=== PATIENT | female | born 1930 | race Caucasian/White ===

== ENCOUNTER 2017-03-13 16:07 | Observation (INO) | payer OTHER, MEDICAID ==
[2017-03-13 16:33] LABS: PLATELET COUNT 365 10^3/uL (150-400)
[2017-03-13 16:44] LABS: INR 0.91 (0.83-1.16); PROTIME(PATIENT) 12.2 SEC (12.0-15.0)
--- NOTE | 2017-03-13 16:54 | EDPHY ---
H & P Stated Complaint: Slurred Speech Time Seen by Provider: 03/13/17 16:44 HPI/ROS: CHIEF COMPLAINT: Resolved expressive aphasia HISTORY OF PRESENT ILLNESS: The patient patient is brought to the emergency department by paramedics after she experienced a bout of resolved expressive aphasia. The patient has remote history of a stroke 5 years ago. She underwent a left carotid endarterectomy. She has been symptom-free since that time. The patient is intermittently using a baby aspirin. According to the patient's son, she developed an expressive aphasia at 3:30 p.m. this afternoon. REVIEW OF SYSTEMS: A comprehensive 10 point review of systems is otherwise negative aside from elements mentioned in the history of present illness. - Medical/Surgical History Other PMH: Stroke 2011, DM, HTN, CHF, Gerd, carotid endarectomy - Physical Exam Exam: General Appearance: Alert, no distress Eyes: Pupils equal and round no pallor or injection ENT, Mouth: Mucous membranes moist Respiratory: There are no retractions, lungs are clear to auscultation Cardiovascular: Regular rate and rhythm Gastrointestinal: Abdomen is soft and nontender, no masses, bowel sounds normal Neurological: A&O, normal motor function, normal sensory exam, normal cranial nerves Skin: Warm and dry, no rashes Musculoskeletal: Neck is supple nontender Extremities: symmetrical, full range of motion Constitutional: Initial Vital Signs Heart Rate 76 03/13/17 16:11 Respiratory Rate 14 03/13/17 16:11 Blood Pressure 160/70 H 03/13/17 16:11 O2 Sat (%) 92 03/13/17 16:11 O2 Delivery Mode Room Air Allergies/Adverse Reactions: No Known Allergies Allergy (Unverified 03/13/17 16:45) Medical Decision Making - Diagnostics EKG Interpretation: EKG: Complete interpretation has been separately recorded in the [facility] archive. Summary impression: Sinus rhythm, single PVC, nonspecific ST T wave changes noted Imaging Results: Imaging Impressions Head CT 03/13/17 17:19 Impression: 1. Old large right parietal infarct with no definite acute intracranial findings. 2. Additional findings as above. Findings discussed with Dr. Matteo Toribio on 03/13/2017 at 17:58. Head CTA 03/13/17 17:20 Impression: 1. No acute vascular findings. If symptoms persist and clinical suspicion warrants, consider MRI. 2. Tortuosity in the proximal right internal carotid artery causing mild stenosis. 3. Mild narrowing and irregularity of the distal right P1 and proximal P2 segment of the posterior cerebral artery. 4. 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 5. Multilevel degenerative changes in the cervical spine. 6. Additional findings as above. Stenoses are calculated using [place] Symptomatic Carotid Endarterectomy Trial (NASCET) criteria. Findings discussed with Dr. Matteo Toribio on 03/13/2017 at 18:12. Neck CTA 03/13/17 17:20 Impression: 1. No acute vascular findings. If symptoms persist and clinical suspicion warrants, consider MRI. 2. Tortuosity in the proximal right internal carotid artery causing mild stenosis. 3. Mild narrowing and irregularity of the distal right P1 and proximal P2 segment of the posterior cerebral artery. 4. 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 5. Multilevel degenerative changes in the cervical spine. 6. Additional findings as above. Stenoses are calculated using [place] Symptomatic Carotid Endarterectomy Trial (NASCET) criteria. Findings discussed with Dr. Matteo Toribio on 03/13/2017 at 18:12. ED Course/Re-evaluation: The patient presents to the ED with symptoms consistent with an acute TIA including an expressive aphasia, difficulty walking and reported paresthesias according to the patient's son. The patient arrives to the emergency department with resolved neurologic symptoms. She has an NIH stroke scale of 0. She does not meet criteria for any thrombolytics therapy. The patient was taken for a CT scan of her head which demonstrates no evidence of intracranial hemorrhage. CT angiography of the neck demonstrates no evidence of dissection or significant flow-limiting obstruction. The patient's EKG and cardiac monitoring in the ED demonstrate no evidence of an arrhythmia. The patient underwent serial examinations by myself over a 3 hour period without recurrent neurologic symptoms. Given the patient's TIA symptoms I do feel that she should be admitted to the hospital for observation. The patient is comfortable with this plan. The patient will be admitted by Dr. Moseley. Consultation was made with the hospitalist service at 7:50 p.m.. The patient was given a 325 mg aspirin in the ED. Differential Diagnosis: Differential diagnosis considered includes stroke, TIA, arrhythmia, dissection, metabolic abnormality, urinary tract infection, intracranial hemorrhage - Data Points Laboratory Results: Laboratory Results 03/13/17 16:26 03/13/17 16:26 03/13/17 03/13/17 03/13/17 16:26 16:26 16:26 WBC 13.63 10^3/uL H 10^3/uL (3.80-9.50) RBC 5.02 10^6/uL 10^6/uL (4.18-5.33) Hgb 15.0 g/dL g/dL (12.6-16.3) Hct 42.7 % % (38.0-47.0) MCV 85.1 fL fL (81.5-99.8) MCH 29.9 pg pg (27.9-34.1) MCHC 35.1 g/dL g/dL (32.4-36.7) RDW 13.9 % % (11.5-15.2) Plt Count 365 10^3/uL 10^3/uL (150-400) MPV 9.2 fL fL (8.7-11.7) Neut % (Auto) 65.0 % % (39.3-74.2) Lymph % (Auto) 25.2 % % (15.0-45.0) [place] % (Auto) 7.3 % % (4.5-13.0) Eos % (Auto) 1.4 % % (0.6-7.6) Baso % (Auto) 0.7 % % (0.3-1.7) Nucleat RBC Rel Count 0.0 % % (0.0-0.2) Absolute Neuts (auto) 8.86 10^3/uL H 10^3/uL (1.70-6.50) Absolute Lymphs (auto) 3.43 10^3/uL H 10^3/uL (1.00-3.00) Absolute Monos (auto) 1.00 10^3/uL H 10^3/uL (0.30-0.80) Absolute Eos (auto) 0.19 10^3/uL 10^3/uL (0.03-0.40) Absolute Basos (auto) 0.09 10^3/uL 10^3/uL (0.02-0.10) Absolute Nucleated RBC 0.00 10^3/uL 10^3/uL (0-0.01) Immature Gran % 0.4 % % (0.0-1.1) Immature Gran # 0.06 10^3/uL 10^3/uL (0.00-0.10) PT 12.2 SEC SEC (12.0-15.0) INR 0.91 (0.83-1.16) Sodium 138 mEq/L mEq/L (134-144) Potassium 4.4 mEq/L mEq/L (3.5-5.2) Chloride 100 mEq/L mEq/L (97-110) Carbon Dioxide 22 mEq/l mEq/l (22-31) Anion Gap 16 mEq/L mEq/L (8-16) BUN 17 mg/dL mg/dL (7-23) Creatinine 1.0 mg/dL mg/dL (0.6-1.0) Estimated GFR 53 Glucose 132 mg/dL H mg/dL (70-100) Calcium 9.6 mg/dL mg/dL (8.5-10.4) Troponin I < 0.012 ng/mL ng/mL (0.000-0.034) Urine Color Urine Appearance Urine pH Ur Specific [place] Urine Protein Urine Ketones Urine Blood Urine Nitrate Urine Bilirubin Urine Urobilinogen Ur Leukocyte Esterase Urine RBC Urine WBC Ur Epithelial Cells Urine Mucus Urine Glucose 03/13/17 16:00 WBC RBC Hgb Hct MCV MCH MCHC RDW Plt Count MPV Neut % (Auto) Lymph % (Auto) [place] % (Auto) Eos % (Auto) Baso % (Auto) Nucleat RBC Rel Count Absolute Neuts (auto) Absolute Lymphs (auto) Absolute Monos (auto) Absolute Eos (auto) Absolute Basos (auto) Absolute Nucleated RBC Immature Gran % Immature Gran # PT INR Sodium Potassium Chloride Carbon Dioxide Anion Gap BUN Creatinine Estimated GFR Glucose Calcium Troponin I Urine Color COLORLESS Urine Appearance CLEAR Urine pH 5.0 (5.0-7.5) Ur Specific [place] 1.003 (1.002-1.030) Urine Protein NEGATIVE (NEGATIVE) Urine Ketones NEGATIVE (NEGATIVE) Urine Blood NEGATIVE (NEGATIVE) Urine Nitrate NEGATIVE (NEGATIVE) Urine Bilirubin NEGATIVE (NEGATIVE) Urine Urobilinogen NEGATIVE EU EU (0.2-1.0) Ur Leukocyte Esterase TRACE H (NEGATIVE) Urine RBC 1-3 /hpf /hpf (0-3) Urine WBC 1-3 /hpf /hpf (0-3) Ur Epithelial Cells TRACE /lpf /lpf (NONE-1+) Urine Mucus TRACE /lpf /lpf (NONE-1+) Urine Glucose NEGATIVE (NEGATIVE) Medications Given: Discontinued Medications Acetaminophen (Tylenol) 650 mg PO EDNOW ONE Stop: 03/13/17 17:10 Last Admin: 03/13/17 17:12 Dose: 650 mg Departure - Departure Disposition: [facility] Inpatient Acute Clinical Impression: Transient cerebral ischemia Condition: Good Referrals: Patient,NotPresent [Unknown] - As per Instructions
--- NOTE | 2017-03-13 17:05 | CPEKG ---
Heart Rate: 67 RR Interval: 896 P-R Interval: 140 QRSD Interval: 90 QT Interval: 416 QTC Interval: 439 P [place]: 66 QRS [place]: 7 T Wave [place]: 76 EKG Severity - BORDERLINE ECG - EKG Impression: SINUS RHYTHM EKG Impression: VENTRICULAR PREMATURE COMPLEX EKG Impression: BORDERLINE T ABNORMALITIES, ANT-LAT LEADS Electronically Signed By: Matteo Toribio 13-Mar-2017 17:22:21
[2017-03-13] MEDS ORDERED: ACETAMINOPHEN 325 MG TAB PO ONE (17:09)
[2017-03-13] MEDS ORDERED: IOPAMIDOL (ISOVUE 370) 100 ML BTL IV ONE (17:24)
[2017-03-13] MEDS ORDERED: ONDANSETRON 4 MG/2 ML VIAL IVP PRN (19:57)
[2017-03-13] MEDS ORDERED: ONDANSETRON DISINTEGRATING 4 MG TAB PO PRN (19:57)
[2017-03-13] MEDS ORDERED: ALPRAZolam 0.5 MG TAB PO PRN (21:57)
[2017-03-13] MEDS ORDERED: CALCIUM CARBONATE 500 MG CHEWABLE TAB PO PRN (21:57)
[2017-03-13] MEDS ORDERED: FUROSEMIDE 20 MG TAB PO PRN (21:57)
--- NOTE | 2017-03-13 22:09 | PDGENHP ---
History and Physical - Chief Complaint Acute aphasia - History of Present Illness PCP: Dr. Smyth HPI: 86 yo F p/w acute aphasia characterized as expressive and like a "heaviness " to her voice w/ associated ataxia and paresthesias of the chest. Onset of symptoms was 3:30 p.m. and duration approx 20-30 minutes. She reports that the sensation was similar to what she experienced 5 years ago when she was told she had a CVA. She otherwise denies any infectious symptoms, although she does report intermittent pains located in her abdomen, not temporally associated w/ PO intake. History Information - Allergies/Home Medication List Allergies/Adverse Reactions: No Known Allergies Allergy (Unverified 03/13/17 16:45) Home Medications: ALPRAZolam [Xanax 0.5 MG (*)] 0.5 mg PO BID PRN 03/13/17 [Last Taken Unknown] Acetaminophen [Tylenol ES 500 mg (*)] 500 mg PO Q4H PRN 03/13/17 [Last Taken 11/20 08:00 500MG] Aspirin EC [Aspirin EC 81 mg (*)] 81 mg PO DAILY 03/13/17 [Last Taken 03/13/17] Calcium Carbonate [Tums 500MG (*)] 1,000 - 2,000 mg PO TIDMEAL PRN 03/13/17 [ Last Taken Unknown] FLUoxetine [Prozac 10 MG (*)] 10 mg PO DAILY 03/13/17 [Last Taken 03/13/17] Furosemide [Lasix 20 MG (*)] 20 mg PO DAILY PRN 03/13/17 [Last Taken Unknown] Levothyroxine [Synthroid 112 mcg (*)] 112 mcg PO DAILY06 03/13/17 [Last Taken ] Omeprazole [Prilosec 20 mg] 20 mg PO DAILY PRN 03/13/17 [Last Taken Unknown] I have personally reviewed and updated: family history, medical history, social history, surgical history - Past Medical History CVA (5 years ago) Additional medical history: Hypothyroidism. Sinus Congestion - Surgical History Additional surgical history: CEA 5 years ago when she had CVA - Family History Additional family history: no recent sick family contacts, no CAD/Afib - Social History Smoking Status: Never smoked Alcohol Use: None Drug Use: None Additional social history: lives at [facility] Review of Systems Review of Systems: ROS: 10pt was reviewed & negative except for what was stated in HPI & below Neurological: Reports: paresthesia, other (ataxia, aphasia) Physical Exam Physical Exam: Temp Pulse Resp BP Pulse Ox 36.4 C 62 18 165/78 H 93 03/13/17 20:49 03/13/17 20:49 03/13/17 20:49 03/13/17 20:49 03/13/17 20:49 Constitutional: no apparent distress, appears nourished, not in pain Eyes: PERRL, anicteric sclera, EOMI Ears, Nose, Mouth, Throat: moist mucous membranes, hard of hearing Cardiovascular: regular rate and rhythym, no murmur, rub, or gallop, No irregularly irregular, No edema Respiratory: no respiratory distress, no rales or rhonchi, clear to auscultation Gastrointestinal: normoactive bowel sounds, soft, non-tender abdomen, no palpable masses Genitourinary: no bladder fullness, no bladder tenderness Neurologic: AAOx3, sensation intact bilaterally, CN II-XII Intact, No weakness, No facial droop Psychiatric: interacting appropriately, not anxious, not encephalopathic, thought process linear Lab Data & Imaging Review 03/13/17 16:26 03/13/17 16:26 WBC 13.63 10^3/uL (3.80-9.50) H 03/13/17 16:26 RBC 5.02 10^6/uL (4.18-5.33) 03/13/17 16:26 Hgb 15.0 g/dL (12.6-16.3) 03/13/17 16:26 Hct 42.7 % (38.0-47.0) 03/13/17 16:26 MCV 85.1 fL (81.5-99.8) 03/13/17 16:26 MCH 29.9 pg (27.9-34.1) 03/13/17 16:26 MCHC 35.1 g/dL (32.4-36.7) 03/13/17 16:26 RDW 13.9 % (11.5-15.2) 03/13/17 16:26 Plt Count 365 10^3/uL (150-400) 03/13/17 16:26 MPV 9.2 fL (8.7-11.7) 03/13/17 16:26 Neut % (Auto) 65.0 % (39.3-74.2) 03/13/17 16:26 Lymph % (Auto) 25.2 % (15.0-45.0) 03/13/17 16:26 [place] % (Auto) 7.3 % (4.5-13.0) 03/13/17 16:26 Eos % (Auto) 1.4 % (0.6-7.6) 03/13/17 16:26 Baso % (Auto) 0.7 % (0.3-1.7) 03/13/17 16:26 Nucleat RBC Rel Count 0.0 % (0.0-0.2) 03/13/17 16:26 Absolute Neuts (auto) 8.86 10^3/uL (1.70-6.50) H 03/13/17 16:26 Absolute Lymphs (auto) 3.43 10^3/uL (1.00-3.00) H 03/13/17 16:26 Absolute Monos (auto) 1.00 10^3/uL (0.30-0.80) H 03/13/17 16:26 Absolute Eos (auto) 0.19 10^3/uL (0.03-0.40) 03/13/17 16:26 Absolute Basos (auto) 0.09 10^3/uL (0.02-0.10) 03/13/17 16:26 Absolute Nucleated RBC 0.00 10^3/uL (0-0.01) 03/13/17 16:26 Immature Gran % 0.4 % (0.0-1.1) 03/13/17 16:26 Immature Gran # 0.06 10^3/uL (0.00-0.10) 03/13/17 16:26 PT 12.2 SEC (12.0-15.0) 03/13/17 16:26 INR 0.91 (0.83-1.16) 03/13/17 16:26 Sodium 138 mEq/L (134-144) 03/13/17 16:26 Potassium 4.4 mEq/L (3.5-5.2) 03/13/17 16:26 Chloride 100 mEq/L (97-110) 03/13/17 16:26 Carbon Dioxide 22 mEq/l (22-31) 03/13/17 16:26 Anion Gap 16 mEq/L (8-16) 03/13/17 16:26 BUN 17 mg/dL (7-23) 03/13/17 16:26 Creatinine 1.0 mg/dL (0.6-1.0) 03/13/17 16:26 Estimated GFR 53 03/13/17 16:26 Glucose 132 mg/dL (70-100) H 03/13/17 16:26 Calcium 9.6 mg/dL (8.5-10.4) 03/13/17 16:26 Troponin I < 0.012 ng/mL (0.000-0.034) 03/13/17 16:26 Urine Color COLORLESS 03/13/17 16:00 Urine Appearance CLEAR 03/13/17 16:00 Urine pH 5.0 (5.0-7.5) 03/13/17 16:00 Ur Specific [place] 1.003 (1.002-1.030) 03/13/17 16:00 Urine Protein NEGATIVE (NEGATIVE) 03/13/17 16:00 Urine Ketones NEGATIVE (NEGATIVE) 03/13/17 16:00 Urine Blood NEGATIVE (NEGATIVE) 03/13/17 16:00 Urine Nitrate NEGATIVE (NEGATIVE) 03/13/17 16:00 Urine Bilirubin NEGATIVE (NEGATIVE) 03/13/17 16:00 Urine Urobilinogen NEGATIVE EU (0.2-1.0) 03/13/17 16:00 Ur Leukocyte Esterase TRACE (NEGATIVE) H 03/13/17 16:00 Urine RBC 1-3 /hpf (0-3) 03/13/17 16:00 Urine WBC 1-3 /hpf (0-3) 03/13/17 16:00 Ur Epithelial Cells TRACE /lpf (NONE-1+) 03/13/17 16:00 Urine Mucus TRACE /lpf (NONE-1+) 03/13/17 16:00 Urine Glucose NEGATIVE (NEGATIVE) 03/13/17 16:00 Visualized and Interpreted EKG results: Yes EKG Interpretation: Positive for: other (mild ST dep V5-V6) Assessment & Plan Assessment: 86 yo F p/w suspected acute TIA in setting of prior CVA Plan: # Suspected TIA. Acute, new problem, further w/u indicated. Evidenced by ataxia/ aphasia/paresthesias, sx resolved - suspect she had an acute event, WBC elevated - d/w Dr. Braeden Toribio, we both agree that given her ABCD2 score of 4, conferring moderate risk of subsequent CVA (4%/6%/10%), she requires urgent eval - get Echo - CTA w/o flow limiting stenosis, tortuosity in R ICA w/ mild stenosis, mild R P1 and P2 stenosis - ordered outside records (patient reports recent MRI, clinic note) - patient would like to defer repeat MRI at this time, but, if after therapy evals she still has some residual symptoms, would strongly recommend - increase ASA to 325 - check LDL, A1c, consider statin - get neuro consult in AM - monitor on tele, monitor for cardiac symptoms Diet. Regular PPx. High risk, SCDs given possibility of neurovascular event Code. Full per patient, son MDPOA Dispo. ADD 03/14, pending further w/u indicated above.
[2017-03-13] MEDS: traZODone 50 MG TAB PO SCH (22:35)
[2017-03-13] MEDS: ACETAMINOPHEN 325 MG TAB PO PRN (22:44)
[2017-03-14] MEDS: LEVOTHYROXINE 112 MCG TAB PO SCH (04:32)
[2017-03-14] MEDS: ACETAMINOPHEN 325 MG TAB PO PRN ×3 (04:32→20:56)
[2017-03-14] MEDS: FLUoxetine 10 MG CAP PO SCH (08:25)
[2017-03-14 08:38] LABS: PLATELET COUNT 319 10^3/uL (150-400)
[2017-03-14] MEDS ORDERED: ASPIRIN 325 MG TAB PO SCH (09:00)
[2017-03-14] MEDS ORDERED: PANTOPRAZOLE SODIUM 40 MG TAB PO PRN (09:00)
--- NOTE | 2017-03-14 09:54 | NEUROPROG ---
Assessment: [id number] CC: Dr. Moseley consulted neurology for problems speaking. Results placed in the EMR for his review. HPI: The patient reported on 03/13/17 she had 20-30 min of problems speaking associated with ataxia and tingling of the chest. She felt these symptoms were similar to stroke symptoms she suffered in 2011. She was admitted to [facility] for stroke evaluation. CTA head/neck showed no acute intracranial findings and no carotid stenosis > 50%. I initially saw the patient on 03/14/17. She felt her neurologic issues (speech problems, ataxia) had all resolved. She felt she had a sinus infection but otherwise felt good. She declined a brain MRI. PMHx: R parietal stroke 2011 (CEA after stroke), anxiety, hypothyroidism Home Meds: xanax, ASA 81 mg qd, Ca, prozac, lasix, synthroid, omeprazole SHx: no tobacco FHx: no CAD/afib ROS: Pt denied acute fever, total vision loss, active severe chest pain, respiratory failure, total body severe rash, total bowel/bladder incontinence, psychosis, active seizures, or active bleeding O: VS reviewed General: Alert Eyes: Fundoscopic exam not able to visualize optic disks CV: Heart RRR, no murmur, no carotid bruit Lungs: Clear to auscultation bilaterally, no rhonci or rales Neuro: - Mental: . Oriented x person/place/date . concentration appears normal . speech fluency/comprehension normal . memory appears normal . fund of knowledge appear intact - Cranial Nerves: . II: PERRL, VFFTC . III/IV/: EOMI, no nystagmus, normal smooth pursuits, no Ptosis . V: facial sensation intact to LT . VII: face symmetric to eye closure and smile . VIII: hearing intact to conversation . IX/X: uvula raises symmetrically . XI: SCM 5/5 B/L strength . XII: tongue protrudes midline w/nl strength - Motor: . Tone: normal tone in all 4 extrem . Strength: no pronator drift, strength 5/5 throughout (B/L delt, bic, tri, hand electronic scale assembler and tester, hf/he, df/pf) - Reflexes: B/L BR 2/4 - Sensory: all 4 extrem intact to light touch - Coord: [id number] wnl, CAROL wnl, [id number] wnl - Gait: deferred - NIH SS 0 Labs: 03/13/17- CBC WBC 13.63H, UA trace LE, Chem Gluc 132 Rads: 03/13/17- Head CT: no acute changes, old large R parietal infarct (I personally visualized the images on 03/14/17) 03/13/17- CTA head/neck: no acute vascular findings, prox mild R ICA stenosis (< 50%), mild narrowing of R P1 and P2, multilevel degen disc disease Assessment: 1. TIA causing 20-30 minutes of recurrent stroke symptoms of aphasia, ataxia, chest tingling on 03/13/17: Pt with prior right parietal stroke 2011 during which she had similar symptoms. Current episode may have been a TIA, small stroke, or a recurrence of old stroke symptoms. Pt declined brain MRI and prefers to be treated as if it was a TIA. If echocardiogram and telemetry are unremarkable and PT/OT/Speech agree then pt can discharge home. Recommend changing aspirin to plavix. LDL/H1AC pending. 2. Prior Right Parietal stroke 2011 3. Anxiety Plan: - 24 hour telemetry and TTE - Brain MRI w/o con declined by patient - Change aspirin 81 mg qd to plavix 75 mg qd (TIA occurred on aspirin) - Labs: LDL, H1AC (LDL goal < 70 and H1AC goal < 7.0), recommend statin if LDL > 70 - Blood Pressure < 140/90 - OT/PT/ST consults - F/U in neurology clinic 1-4 weeks after discharge Pt can discharge if PT/OT/Speech agrees and telemetry and TTE are unremarkable Objective: Vital Signs Temp Pulse Resp BP Pulse Ox 36.0 C 71 18 148/66 H 93 03/14/17 07:52 03/14/17 07:52 03/14/17 07:52 03/14/17 07:52 03/14/17 07:52 Laboratory Results 03/14/17 08:30 03/14/17 08:30 03/13/17 03/14/17 03/15/17 05:59 05:59 05:59 Intake Total 350 Balance 350 PT 12.2 SEC (12.0-15.0) 03/13/17 16:26 INR 0.91 (0.83-1.16) 03/13/17 16:26 Allergies/Adverse Reactions: No Known Allergies Allergy (Unverified 03/13/17 16:45)
--- NOTE | 2017-03-14 11:46 | ASMTCMCOM ---
CM Note CM Note Notes: Patient admitted after suspected TIA. She is being followed by neurology. I spoke with patient and her son Jorden ([facility] [employer]). She lives at [facility] where she received minimal assistance. She walks with a cane. We discussed the idea of using a walker, which her son says has been a recommendation for many years now. Patient seems amenable to trying it (she uses a cane now). I also suggested the idea of home PT/OT to help her learn to use walker and promote home safety. Will await PT/OT/FILLING CARRIER evals for formal recommendations. CM Discharge plan: TBD pending PT/OT/FILLING CARRIER evaluations and recommendations Date Signed: 03/14/2017 11:45 AM Electronically Signed By:Angelica Kerr RN
--- NOTE | 2017-03-14 11:46 | ASMTCMCOM ---
CM Note CM Note Notes: Patient admitted after suspected TIA. She is being followed by neurology. I spoke with patient and her son Jorden ([facility] She lives at [facility] where she received minimal assistance. She walks with a cane. We discussed the idea of using a walker, which her son says has been a recommendation for many years now. Patient seems amenable to trying it (she uses a cane now). I also suggested the idea of home PT/OT to help her learn to use walker and promote home safety. Will await PT/OT/SUCTION OPERATOR evals for formal recommendations. CM Discharge plan: TBD pending PT/OT/SUCTION OPERATOR evaluations and recommendations Date Signed: 03/14/2017 11:45 AM Electronically Signed By:Angelica Kerr RN
--- NOTE | 2017-03-14 11:46 | ASMTCMCOM ---
CM Note CM Note Notes: Patient admitted after suspected TIA. She is being followed by neurology. I spoke with patient and her son [facility] She lives at [facility] where she received minimal assistance. She walks with a cane. We discussed the idea of using a walker, which her son says has been a recommendation for many years now. Patient seems amenable to trying it (she uses a cane now). I also suggested the idea of home PT/OT to help her learn to use walker and promote home safety. Will await PT/OT/TAX COLLECTOR evals for formal recommendations. CM Discharge plan: TBD pending PT/OT/TAX COLLECTOR evaluations and recommendations Date Signed: 03/14/2017 11:45 AM Electronically Signed By:Angelica Kerr RN
--- NOTE | 2017-03-14 14:56 | HOSPPROG ---
Hospitalist Progress Note Assessment/Plan: 86 yo F p/w suspected acute TIA in setting of prior CVA. First encounter, chart reviewed. - CTA w/o flow limiting stenosis, tortuosity in R ICA w/ mild stenosis, mild R P1 and P2 stenosis # TIA - 20-30 minutes of recurrent stroke symptoms of aphasia, ataxia, chest tingling resolved. - Pt with prior right parietal stroke 2011 during which she had similar symptoms - Current episode may have been a TIA, small stroke, or a recurrence of old stroke symptoms - declined brain MRI and prefers to be treated as if it was a TIA. - echocardiogram and telemetry are pending - monitor for 24 hours if - PT/OT/ rec SNF -will change aspirin to plavix - CTA w/o flow limiting stenosis, tortuosity in R ICA w/ mild stenosis, mild R P1 and P2 stenosis - LDL/H1AC both high, will treat, start lipitor glucophage # Prior Right Parietal stroke 2011 # Anxiety # Confusion #Dispo unclear, cont in house monitoring tele, echo speech possibly needs SNF rehab Plan: - 24 hour telemetry and TTE - Brain MRI w/o con declined by patient - Change aspirin 81 mg qd to plavix 75 mg qd (TIA occurred on aspirin) - Blood Pressure < 140/90 - OT/PT/ST consults - F/U in neurology clinic 1-4 weeks after discharge Diet. Regular PPx. High risk, SCDs given possibility of neurovascular event Code. Full per patient, son MDPOA Dispo. change to inpt Subjective: Up in chair. Still confused and forgetful. Objective: Vital Signs Temp Pulse Resp BP Pulse Ox 36.0 C 60 21 H 143/55 H 90 L 03/14/17 07:52 03/14/17 11:48 03/14/17 11:48 03/14/17 11:48 03/14/17 11:48 Laboratory Results 03/14/17 08:30 03/14/17 08:30 03/13/17 03/14/17 03/15/17 05:59 05:59 05:59 Intake Total 350 Balance 350 PT 12.2 SEC (12.0-15.0) 03/13/17 16:26 INR 0.91 (0.83-1.16) 03/13/17 16:26 - Physical Exam Constitutional: not in pain, chronically ill appearing, obese Eyes: PERRL, anicteric sclera, EOMI Ears, Nose, Mouth, Throat: moist mucous membranes, hearing normal, ears appear normal Cardiovascular: regular rate and rhythym, No JVD, No edema Respiratory: no respiratory distress, no rales or rhonchi, reduced air movement Gastrointestinal: normoactive bowel sounds, No tenderness, No ascites Skin: warm, normal color, No erythema Musculoskeletal: normal joint ROM, no joint effusions, generalized weakness Psychiatric: not anxious, poor insight, poor judgement, poor memory ICD10 Worksheet Patient Problems: Problems Problem Status Onset Transient cerebral ischemia Acute
--- NOTE | 2017-03-14 15:37 | ASMTCMCOM ---
CM Note CM Note Notes: Call from Moni, cardiac care unit nurse at [facility]. She will have to come do a "re-admit" assessment tomorrow since patient has been hospitalized for >24 hrs. I asked her to please coordinate this assessment with patient's son/TIMUR Leonardo who is available tomorrow after 1300. I left Moni a voice message to please call Jorden and coordinate. I spoke with Jorden and his about the above meeting and the potenial requirement by [facility] for a SNF stay. Jorden believes that patient is at her baseline, which seems reasonable since she did not suffer a fall and her TIA symptoms have resolved. I explained that we could arrange home care at [facility] as another option. I encouraged him to call [facility] and see if patient could be receiving more assistance from the facility. I gave him a Senior Blue Book and encouraged him to research facilities in case that becomes the recommendation. CM will follow tomorrow. Current d/c plan: TBD Date Signed: 03/14/2017 03:37 PM Electronically Signed By:Angelica Kerr RN
--- NOTE | 2017-03-14 15:37 | ASMTCMCOM ---
CM Note CM Note Notes: Call from Moni, career representative at [facility]. She will have to come do a "re-admit" assessment tomorrow since patient has been hospitalized for >24 hrs. I asked her to please coordinate this assessment with patient's son/TIMUR Leonardo who is available tomorrow after 1300. I left Moni a voice message to please call Jorden and coordinate. I spoke with Jorden and his about the above meeting and the potenial requirement by [facility] for a SNF stay. Jorden believes that patient is at her baseline, which seems reasonable since she did not suffer a fall and her TIA symptoms have resolved. I explained that we could arrange home care at [facility] as another option. I encouraged him to call [facility] and see if patient could be receiving more assistance from the facility. I gave him a Senior Blue Book and encouraged him to research facilities in case that becomes the recommendation. CM will follow tomorrow. Current d/c plan: TBD Date Signed: 03/14/2017 03:37 PM Electronically Signed By:Angelica Kerr RN
--- NOTE | 2017-03-14 15:37 | ASMTCMCOM ---
CM Note CM Note Notes: Call from Moni, customer care coordinator at [facility]. She will have to come do a "re-admit" assessment tomorrow since patient has been hospitalized for >24 hrs. I asked her to please coordinate this assessment with patient's son/TIMUR Leonardo who is available tomorrow after 1300. I left Moni a voice message to please call Jorden and coordinate. I spoke with Jorden and his about the above meeting and the potenial requirement by [facility] for a SNF stay. Jorden believes that patient is at her baseline, which seems reasonable since she did not suffer a fall and her TIA symptoms have resolved. I explained that we could arrange home care at [facility] as another option. I encouraged him to call [facility] and see if patient could be receiving more assistance from the facility. I gave him a Senior Blue Book and encouraged him to research facilities in case that becomes the recommendation. CM will follow tomorrow. Current d/c plan: TBD Date Signed: 03/14/2017 03:37 PM Electronically Signed By:Angelica Kerr RN
--- NOTE | 2017-03-14 17:56 | ECHO ---
[email or web address] [address] [address] Main: [phone] Fax: Transthoracic Echocardiogram Name: NICHOLAS ALVAREZ MR#: [id number] Study Date: 03/14/2017 Study Time: 07:58 AM Date of : 1930 Age: 86 year(s) Height: 167.6 cm (66 in.) Weight: 104.33 kg (230 lb.) BSA: 2.12 m2 Gender: Female Examination: Echo Indication: eval TIA Image Quality: Technically Difficult Contrast: Requested by: Aron Moseley BP: 148 mmHg/66 mmHg Heart Rate: 61 bpm Rhythm: Normal sinus rhythm with ectopy Indication: eval TIA Procedure Staff Bindery Operator: Angeles Kirkland Reading Physician: Aron Contreras Requesting Provider: Conclusions: Normal size left ventricle. Borderline concentric LV hypertrophy. EF is 57 %. Cannot rule out wall motion abnormality due to poor endocardial definition. There is mild thickening of the mitral valve leaflets. Mild-moderate mitral annular calcification. Trivial to mild mitral regurgitation. The aortic valve is tri-leaflet. There is no aortic valve regurgitation. No aortic valve stenosis is present. No old studies for comparison. Measurements: Chambers Valvular Assessment AV/MV Valvular Assessment TV/PV Normal Normal Normal Name Value Range Name Value Range Name Value Range Ao Joellen (MM): 2.5 cm (2.2 cm-3.7 AV Vmax: 1.25 m/s (1 m/s-1.7 TR Vmax: 2.40 mm/s ( - ) cm) m/s) TR PGmax: 23 mmHg ( - ) IVSd (2D): 1.1 cm (0.6 cm-1.1 AV maxP mmHg ( - ) syst. PAP: 28 mmHg ( - ) cm) LVOT Vmax: 0.87 m/s (0.7 m/s-1.1 PV Vmax: 0.80 m/s (0.6 m/s-0.9 LVDd (2D): 4.4 cm (3.9 cm-5.3 m/s) m/s) cm) MV E Vmax: 0.44 m/s ( - ) PV PGmax: 3 mmHg ( - ) LVDs (2D): 3.1 cm (2.1 cm-4 MV A Vmax: 0.84 m/s ( - ) cm) MV E/A: 0.52 ( - ) LVPWd (2D): 1.0 cm ( - ) LVEF (2D): 57 (>=54 %) RVDd(2D): 3.5 cm (1.9 cm-3.8 cmmm) Continued Measurements: Patient: NICHOLAS ALVAREZ Study Date: 03/14/2017 Page 1 of 2 07:58 AM Chambers Valvular Assessment AV/MV Valvular Assessment TV/PV Name Value Name Value Name Value LADs Lon.0 cm MV DecTime: 331 m/s CVP (est.): 5 mmHg LA Area: 18.9 cm2 MV E' Septal: 0.07 m/s LA Volume: 65 ml MV E/E' Septal: 6.50 LA Volume Index: 30.7 ml/m2 MV E/E' Lateral: 7.90 RA Area: 12.9 cm2 Additional Vessels Name Value Ao Ascendin.0 cm Findings: Left Ventricle: Normal size left ventricle. Borderline concentric LV hypertrophy. Normal global systolic LV function. EF is 57 %. Cannot rule out wall motion abnormality due to poor endocardial definition. Grade 1 diastolic dysfunction (abnormal relaxation). Right Ventricle: Normal size right ventricle. Normal RV function. Left Atrium: The left atrium is normal in size. Right Atrium: The right atrium is normal in size. Mitral Valve: There is mild thickening of the mitral valve leaflets. Mild-moderate mitral annular calcification. Trivial to mild mitral regurgitation. Aortic Valve: The aortic valve is tri-leaflet. Aortic sclerosis is present. There is no aortic valve regurgitation. No aortic valve stenosis is present. Tricuspid Valve: The tricuspid valve appears normal. Trivial to mild tricuspid valve regurgitation. The pulmonary artery pressure is normal. Aorta: Normal size aortic root measuring 2.5 cm. Normal size ascending aorta measuring 3.0 cm. IVC: The IVC is normal sized. Pericardium: No pericardial effusion. There is pericardial fat. (No Signature Object) Patient: NICHOLAS ALVAREZ Study Date: 03/14/2017 Page 2 of 2 07:58 AM [id number]
--- NOTE | 2017-03-14 17:56 | ECHO ---
[email or web address] [address] [address] Main: [phone] Fax: Transthoracic Echocardiogram Name: NICHOLAS ALVAREZ MR#: [id number] Study Date: 03/14/2017 Study Time: 07:58 AM Date of : 1930 Age: 86 year(s) Height: 167.6 cm (66 in.) Weight: 104.33 kg (230 lb.) BSA: 2.12 m2 Gender: Female Examination: Echo Indication: eval TIA Image Quality: Technically Difficult Contrast: Requested by: Aron Moseley BP: 148 mmHg/66 mmHg Heart Rate: 61 bpm Rhythm: Normal sinus rhythm with ectopy Indication: eval TIA Procedure Staff Lithographic Platemaker: Angeles Kirkland Reading Physician: Aron Contreras Requesting Provider: Conclusions: Normal size left ventricle. Borderline concentric LV hypertrophy. EF is 57 %. Cannot rule out wall motion abnormality due to poor endocardial definition. There is mild thickening of the mitral valve leaflets. Mild-moderate mitral annular calcification. Trivial to mild mitral regurgitation. The aortic valve is tri-leaflet. There is no aortic valve regurgitation. No aortic valve stenosis is present. No old studies for comparison. Measurements: Chambers Valvular Assessment AV/MV Valvular Assessment TV/PV Normal Normal Normal Name Value Range Name Value Range Name Value Range Ao Joellen (MM): 2.5 cm (2.2 cm-3.7 AV Vmax: 1.25 m/s (1 m/s-1.7 TR Vmax: 2.40 mm/s ( - ) cm) m/s) TR PGmax: 23 mmHg ( - ) IVSd (2D): 1.1 cm (0.6 cm-1.1 AV maxP mmHg ( - ) syst. PAP: 28 mmHg ( - ) cm) LVOT Vmax: 0.87 m/s (0.7 m/s-1.1 PV Vmax: 0.80 m/s (0.6 m/s-0.9 LVDd (2D): 4.4 cm (3.9 cm-5.3 m/s) m/s) cm) MV E Vmax: 0.44 m/s ( - ) PV PGmax: 3 mmHg ( - ) LVDs (2D): 3.1 cm (2.1 cm-4 MV A Vmax: 0.84 m/s ( - ) cm) MV E/A: 0.52 ( - ) LVPWd (2D): 1.0 cm ( - ) LVEF (2D): 57 (>=54 %) RVDd(2D): 3.5 cm (1.9 cm-3.8 cmmm) Continued Measurements: Patient: NICHOLAS ALVAREZ Study Date: 03/14/2017 Page 1 of 2 07:58 AM Chambers Valvular Assessment AV/MV Valvular Assessment TV/PV Name Value Name Value Name Value LADs Lon.0 cm MV DecTime: 331 m/s CVP (est.): 5 mmHg LA Area: 18.9 cm2 MV E' Septal: 0.07 m/s LA Volume: 65 ml MV E/E' Septal: 6.50 LA Volume Index: 30.7 ml/m2 MV E/E' Lateral: 7.90 RA Area: 12.9 cm2 Additional Vessels Name Value Ao Ascendin.0 cm Findings: Left Ventricle: Normal size left ventricle. Borderline concentric LV hypertrophy. Normal global systolic LV function. EF is 57 %. Cannot rule out wall motion abnormality due to poor endocardial definition. Grade 1 diastolic dysfunction (abnormal relaxation). Right Ventricle: Normal size right ventricle. Normal RV function. Left Atrium: The left atrium is normal in size. Right Atrium: The right atrium is normal in size. Mitral Valve: There is mild thickening of the mitral valve leaflets. Mild-moderate mitral annular calcification. Trivial to mild mitral regurgitation. Aortic Valve: The aortic valve is tri-leaflet. Aortic sclerosis is present. There is no aortic valve regurgitation. No aortic valve stenosis is present. Tricuspid Valve: The tricuspid valve appears normal. Trivial to mild tricuspid valve regurgitation. The pulmonary artery pressure is normal. Aorta: Normal size aortic root measuring 2.5 cm. Normal size ascending aorta measuring 3.0 cm. IVC: The IVC is normal sized. Pericardium: No pericardial effusion. There is pericardial fat. (No Signature Object) Patient: NICHOLAS ALVAREZ Study Date: 03/14/2017 Page 2 of 2 07:58 AM [id number]
--- NOTE | 2017-03-14 17:56 | ECHO ---
[email or web address] [address] [address] Main: [phone] Fax: Transthoracic Echocardiogram Name: NICHOLAS ALVAREZ MR#: [id number] Study Date: 03/14/2017 Study Time: 07:58 AM Date of : 1930 Age: 86 year(s) Height: 167.6 cm (66 in.) Weight: 104.33 kg (230 lb.) BSA: 2.12 m2 Gender: Female Examination: Echo Indication: eval TIA Image Quality: Technically Difficult Contrast: Requested by: Aron Moseley BP: 148 mmHg/66 mmHg Heart Rate: 61 bpm Rhythm: Normal sinus rhythm with ectopy Indication: eval TIA Procedure Staff Cornetist: Angeles Kirkland Reading Physician: Aron Contreras Requesting Provider: Conclusions: Normal size left ventricle. Borderline concentric LV hypertrophy. EF is 57 %. Cannot rule out wall motion abnormality due to poor endocardial definition. There is mild thickening of the mitral valve leaflets. Mild-moderate mitral annular calcification. Trivial to mild mitral regurgitation. The aortic valve is tri-leaflet. There is no aortic valve regurgitation. No aortic valve stenosis is present. No old studies for comparison. Measurements: Chambers Valvular Assessment AV/MV Valvular Assessment TV/PV Normal Normal Normal Name Value Range Name Value Range Name Value Range Ao Joellen (MM): 2.5 cm (2.2 cm-3.7 AV Vmax: 1.25 m/s (1 m/s-1.7 TR Vmax: 2.40 mm/s ( - ) cm) m/s) TR PGmax: 23 mmHg ( - ) IVSd (2D): 1.1 cm (0.6 cm-1.1 AV maxP mmHg ( - ) syst. PAP: 28 mmHg ( - ) cm) LVOT Vmax: 0.87 m/s (0.7 m/s-1.1 PV Vmax: 0.80 m/s (0.6 m/s-0.9 LVDd (2D): 4.4 cm (3.9 cm-5.3 m/s) m/s) cm) MV E Vmax: 0.44 m/s ( - ) PV PGmax: 3 mmHg ( - ) LVDs (2D): 3.1 cm (2.1 cm-4 MV A Vmax: 0.84 m/s ( - ) cm) MV E/A: 0.52 ( - ) LVPWd (2D): 1.0 cm ( - ) LVEF (2D): 57 (>=54 %) RVDd(2D): 3.5 cm (1.9 cm-3.8 cmmm) Continued Measurements: Patient: NICHOLAS ALVAREZ Study Date: 03/14/2017 Page 1 of 2 07:58 AM Chambers Valvular Assessment AV/MV Valvular Assessment TV/PV Name Value Name Value Name Value LADs Lon.0 cm MV DecTime: 331 m/s CVP (est.): 5 mmHg LA Area: 18.9 cm2 MV E' Septal: 0.07 m/s LA Volume: 65 ml MV E/E' Septal: 6.50 LA Volume Index: 30.7 ml/m2 MV E/E' Lateral: 7.90 RA Area: 12.9 cm2 Additional Vessels Name Value Ao Ascendin.0 cm Findings: Left Ventricle: Normal size left ventricle. Borderline concentric LV hypertrophy. Normal global systolic LV function. EF is 57 %. Cannot rule out wall motion abnormality due to poor endocardial definition. Grade 1 diastolic dysfunction (abnormal relaxation). Right Ventricle: Normal size right ventricle. Normal RV function. Left Atrium: The left atrium is normal in size. Right Atrium: The right atrium is normal in size. Mitral Valve: There is mild thickening of the mitral valve leaflets. Mild-moderate mitral annular calcification. Trivial to mild mitral regurgitation. Aortic Valve: The aortic valve is tri-leaflet. Aortic sclerosis is present. There is no aortic valve regurgitation. No aortic valve stenosis is present. Tricuspid Valve: The tricuspid valve appears normal. Trivial to mild tricuspid valve regurgitation. The pulmonary artery pressure is normal. Aorta: Normal size aortic root measuring 2.5 cm. Normal size ascending aorta measuring 3.0 cm. IVC: The IVC is normal sized. Pericardium: No pericardial effusion. There is pericardial fat. (No Signature Object) Patient: NICHOLAS ALVAREZ Study Date: 03/14/2017 Page 2 of 2 07:58 AM [id number]
[2017-03-14] MEDS: traZODone 50 MG TAB PO SCH (20:57)
[2017-03-15] MEDS: ACETAMINOPHEN 325 MG TAB PO PRN ×2 (06:02→12:12)
[2017-03-15] MEDS: LEVOTHYROXINE 112 MCG TAB PO SCH (06:02)
[2017-03-15] MEDS: FLUoxetine 10 MG CAP PO SCH (08:55)
[2017-03-15] MEDS ORDERED: CLOPIDOGREL BISULFATE 75 MG TAB PO SCH (09:00)
[2017-03-15] MEDS ORDERED: ATORVASTATIN CALCIUM 20 MG TAB PO SCH (09:00)
[2017-03-15 11:47] VITALS: BP 151/72; PULSE 73; RESP 16; TEMP 97.8; O2SAT 94
--- NOTE | 2017-03-15 13:18 | PDIAF ---
- Diagnosis Diagnosis: tia Code Status: Full Code - Medication Management Discharge Medications: Medications to Continue on Transfer ALPRAZolam [Xanax 0.5 MG (*)] 0.5 mg PO BID PRN 03/13/17 [Last Taken Unknown] Acetaminophen [Tylenol ES 500 mg (*)] 500 mg PO Q4H PRN 03/13/17 [Last Taken 11/20 08:00 500MG] Calcium Carbonate [Tums 500MG (*)] 1,000 - 2,000 mg PO TIDMEAL PRN 03/13/17 [ Last Taken Unknown] FLUoxetine [Prozac 10 MG (*)] 10 mg PO DAILY 03/13/17 [Last Taken 03/13/17] Furosemide [Lasix 20 MG (*)] 20 mg PO DAILY PRN 03/13/17 [Last Taken Unknown] Levothyroxine [Synthroid 112 mcg (*)] 112 mcg PO DAILY06 03/13/17 [Last Taken ] Omeprazole [Prilosec 20 mg] 20 mg PO DAILY PRN 03/13/17 [Last Taken Unknown] Atorvastatin Calcium [Lipitor 20 mg (*)] 20 mg PO DAILY #30 tab 03/15/17 [Last Taken Unknown] Clopidogrel Bisulfate [Plavix (*)] 75 mg PO DAILY #30 tab 03/15/17 [Last Taken Unknown] Discharge Medications: Refer to the Discharge Home Medication list for PRN reason. PICC Care - Routine: N/A - Orders Services needed: Physical Therapy, Occupational Therapy Diet Recommendation: no restrictions on diet - Follow Up Care Current Providers and Referrals: Patient,NotPresent [Unknown] - As per Instructions Wil Nascimento DO [Medical Doctor] -
--- NOTE | 2017-03-15 14:03 | ASMTCMCOM ---
CM Note CM Note Notes: Mena from [facility] here to do a re-admit assessment on patient. I gave her d/c paperwork and a medication list. Referral made to [facility] for home PT/OT. They will contact patient upon d/c. Patient's son will transport her back to [facility] this afternoon. Date Signed: 03/15/2017 02:03 PM Electronically Signed By:Angelica Kerr RN
--- NOTE | 2017-03-15 14:03 | ASMTCMCOM ---
CM Note CM Note Notes: Mena from [facility] here to do a re-admit assessment on patient. I gave her d/c paperwork and a medication list. Referral made to [facility] for [facility]. They will contact patient upon d/c. Patient's son will transport her back to [facility] this afternoon. Date Signed: 03/15/2017 02:03 PM Electronically Signed By:Angelica Kerr RN
--- NOTE | 2017-03-15 14:03 | ASMTCMCOM ---
CM Note CM Note Notes: Mena from [facility] here to do a re-admit assessment on patient. I gave her d/c paperwork and a medication list. Referral made to [facility] for home PT/OT. They will contact patient upon d/c. Patient's son will transport her back to [facility] this afternoon. Date Signed: 03/15/2017 02:03 PM Electronically Signed By:Angelica Kerr RN
--- NOTE | 2017-03-15 14:20 | ASDISCHSUM ---
Discharge Information Plan Status:Home with Home Health Medically Cleared to Leave: Discharge Date:03/15/2017 02:15 PM CM D/C Disposition:Home Health Service ADT D/C Disposition:Home Health Service Projected Discharge Date:03/15/2017 02:15 PM Transportation at D/C:Family Discharge Delay Reason: Follow-Up Date:03/15/2017 02:15 PM Discharge Slot: Final Diagnosis: Placement Information Patient Contact Information Contact Name:LATIA Relationship:Jessee Address:[address] Work Phone: [facility]:KIMO Amos Phone: State/Zip Code:[place] [address] Email: Financial Information Financial Class: Primary Plan Desc:MEDICARE OUTPATIENT Primary Plan Number:[id number] Secondary Plan Desc:MEDICAID HEALTH FIRST [place] Secondary Plan Number:[id number] Assessment Information [facility] CM Progress Note CM Note CM Note Notes: Patient admitted after suspected TIA. She is being followed by neurology. I spoke with patient and her son Jorden (TIMUR). She lives at [facility] where she received minimal assistance. She walks with a cane. We discussed the idea of using a walker, which her son says has been a recommendation for many years now. Patient seems amenable to trying it (she uses a cane now). I also suggested the idea of home PT/OT to help her learn to use walker and promote home safety. Will await PT/OT/CO OP evals for formal recommendations. CM Discharge plan: TBD pending PT/OT/CO OP evaluations and recommendations Date Signed: 03/14/2017 11:45 AM Electronically Signed By:Angelica Kerr RN [facility] CM Progress Note CM Note CM Note Notes: Call from Moni, healthcare recruiter at [facility]. She will have to come do a "re-admit" assessment tomorrow since patient has been hospitalized for >24 hrs. I asked her to please coordinate this assessment with patient's son/TIMUR Leonardo who is available tomorrow after 1300. I left Moni a voice message to please call Jorden and coordinate. I spoke with Jorden and his about the above meeting and the potenial requirement by [facility] for a SNF stay. Jorden believes that patient is at her baseline, which seems reasonable since she did not suffer a fall and her TIA symptoms have resolved. I explained that we could arrange home care at [facility] as another option. I encouraged him to call [facility] and see if patient could be receiving more assistance from the facility. I gave him a Senior Blue Book and encouraged him to research facilities in case that becomes the recommendation. CM will follow tomorrow. Current d/c plan: TBD Date Signed: 03/14/2017 03:37 PM Electronically Signed By:Angelica Kerr RN [facility] CM Progress Note CM Note CM Note Notes: Mena from [facility] here to do a re-admit assessment on patient. I gave her d/c paperwork and a medication list. Referral made to [facility] for home PT/OT. They will contact patient upon d/c. Patient's son will transport her back to [facility] this afternoon. Date Signed: 03/15/2017 02:03 PM Electronically Signed By:Angelica Kerr RN Intervention Information Intervention Type:*GONZALEZ-Signed Date of Service:03/14/2017 11:59 AM Patient Type:Observation Staff Member:Flores Temple Hours: Discipline: Severity: Comment:
--- NOTE | 2017-03-15 14:20 | ASDISCHSUM ---
Discharge Information Plan Status:Home with Home Health Medically Cleared to Leave: Discharge Date:03/15/2017 02:15 PM CM D/C Disposition:Home Health Service ADT D/C Disposition:Home Health Service Projected Discharge Date:03/15/2017 02:15 PM Transportation at D/C:Family Discharge Delay Reason: Follow-Up Date:03/15/2017 02:15 PM Discharge Slot: Final Diagnosis: Placement Information Patient Contact Information Contact Name:LATIA Relationship:Jessee Address:[address] Work Phone: [facility]:KIMO Amos Phone: State/Zip Code:[place] [address] Email: Financial Information Financial Class: Primary Plan Desc:MEDICARE OUTPATIENT Primary Plan Number:[id number] Secondary Plan Desc:MEDICAID HEALTH FIRST [place] Secondary Plan Number:[id number] Assessment Information [facility] CM Progress Note CM Note CM Note Notes: Patient admitted after suspected TIA. She is being followed by neurology. I spoke with patient and her son Jorden (TIMUR). She lives at [facility] where she received minimal assistance. She walks with a cane. We discussed the idea of using a walker, which her son says has been a recommendation for many years now. Patient seems amenable to trying it (she uses a cane now). I also suggested the idea of home PT/OT to help her learn to use walker and promote home safety. Will await PT/OT/ELECTRON BEAM PHOTO MASK MAKER evals for formal recommendations. CM Discharge plan: TBD pending PT/OT/ELECTRON BEAM PHOTO MASK MAKER evaluations and recommendations Date Signed: 03/14/2017 11:45 AM Electronically Signed By:Angelica Kerr RN [facility] CM Progress Note CM Note CM Note Notes: Call from Moni, wild animal caretaker at [facility]. She will have to come do a "re-admit" assessment tomorrow since patient has been hospitalized for >24 hrs. I asked her to please coordinate this assessment with patient's son/TIMUR Leonardo who is available tomorrow after 1300. I left Moni a voice message to please call Jorden and coordinate. I spoke with Jorden and his about the above meeting and the potenial requirement by [facility] for a SNF stay. Jorden believes that patient is at her baseline, which seems reasonable since she did not suffer a fall and her TIA symptoms have resolved. I explained that we could arrange home care at [facility] as another option. I encouraged him to call [facility] and see if patient could be receiving more assistance from the facility. I gave him a Senior Blue Book and encouraged him to research facilities in case that becomes the recommendation. CM will follow tomorrow. Current d/c plan: TBD Date Signed: 03/14/2017 03:37 PM Electronically Signed By:Angelica Kerr RN [facility] CM Progress Note CM Note CM Note Notes: Mena from [facility] here to do a re-admit assessment on patient. I gave her d/c paperwork and a medication list. Referral made to [facility] for home PT/OT. They will contact patient upon d/c. Patient's son will transport her back to [facility] this afternoon. Date Signed: 03/15/2017 02:03 PM Electronically Signed By:Angelica Kerr RN Intervention Information Intervention Type:*GONZALEZ-Signed Date of Service:03/14/2017 11:59 AM Patient Type:Observation Staff Member:Flores Temple Hours: Discipline: Severity: Comment:
--- NOTE | 2017-03-15 14:20 | ASDISCHSUM ---
Discharge Information Plan Status:Home with Home Health Medically Cleared to Leave: Discharge Date:03/15/2017 02:15 PM CM D/C Disposition:Home Health Service ADT D/C Disposition:Home Health Service Projected Discharge Date:03/15/2017 02:15 PM Transportation at D/C:Family Discharge Delay Reason: Follow-Up Date:03/15/2017 02:15 PM Discharge Slot: Final Diagnosis: Placement Information Patient Contact Information Contact Name:LATIA Relationship:Jessee Address:[address] Work Phone: [facility] Phone: State/Zip Code:[place] [address] Email: Financial Information Financial Class: Primary Plan Desc:MEDICARE OUTPATIENT Primary Plan Number:[id number] Secondary Plan Desc:MED[place] Secondary Plan Number:[id number] Assessment Information [facility] CM Progress Note CM Note CM Note Notes: Patient admitted after suspected TIA. She is being followed by neurology. I spoke with patient and her son Jorden (TIMUR). She lives at [facility] where she received minimal assistance. She walks with a cane. We discussed the idea of using a walker, which her son says has been a recommendation for many years now. Patient seems amenable to trying it (she uses a cane now). I also suggested the idea of home PT/OT to help her learn to use walker and promote home safety. Will await PT/OT/SLOPE HOIST OPERATOR evals for formal recommendations. CM Discharge plan: TBD pending PT/OT/SLOPE HOIST OPERATOR evaluations and recommendations Date Signed: 03/14/2017 11:45 AM Electronically Signed By:Angelica Kerr RN [facility] CM Progress Note CM Note CM Note Notes: Call from Moni, long term care pharmacist at [facility]. She will have to come do a "re-admit" assessment tomorrow since patient has been hospitalized for >24 hrs. I asked her to please coordinate this assessment with patient's son/TIMUR Leonardo who is available tomorrow after 1300. I left Moni a voice message to please call Jorden and coordinate. I spoke with Jorden and his about the above meeting and the potenial requirement by [facility] for a SNF stay. Jorden believes that patient is at her baseline, which seems reasonable since she did not suffer a fall and her TIA symptoms have resolved. I explained that we could arrange home care at [facility] as another option. I encouraged him to call [facility] and see if patient could be receiving more assistance from the facility. I gave him a Senior Blue Book and encouraged him to research facilities in case that becomes the recommendation. CM will follow tomorrow. Current d/c plan: TBD Date Signed: 03/14/2017 03:37 PM Electronically Signed By:Angelica Kerr RN [facility] CM Progress Note CM Note CM Note Notes: Mena from [facility] here to do a re-admit assessment on patient. I gave her d/c paperwork and a medication list. Referral made to [facility] for home PT/OT. They will contact patient upon d/c. Patient's son will transport her back to [facility] this afternoon. Date Signed: 03/15/2017 02:03 PM Electronically Signed By:Angelica Kerr RN Intervention Information Intervention Type:*GONZALEZ-Signed Date of Service:03/14/2017 11:59 AM Patient Type:Observation Staff Member:Flores Temple Hours: Discipline: Severity: Comment:
--- NOTE | 2017-03-15 15:50 | GDS ---
[f rep st] DISCHARGE SUMMARY DISCHARGE DIAGNOSES: 1. Transient ischemic attack. 2. Prior right stroke. 3. Anxiety. 4. Confusion. 5. Hyperlipidemia. 6. Elevated hemoglobin A1c. CONSULTATIONS: Dr. Nascimento. STUDIES: 1. CT angio of the head and neck. 2. CT of the head. 3. Echocardiogram. PHYSICAL EXAM: GENERAL: The patient is alert. VITAL SIGNS: Afebrile 36.6, pulse 73, respiratory r ate 16, blood pressure is 151/72. She is saturating 94% on room air. I have seen and evaluated the patient on the day of discharge. HOSPITAL COURSE: The patient is an 86-year-old female, who presented to the emergency room with comp laints of confusion. She was evaluated and diagnosed with: 1. Likely transient ischemic attack. During this hospitalization, her symptoms have completely reso lved. She did receive a consultation from Neurology. MRI of the brain was recommended, however, the patient declined. CT angio of the head and neck without flow-limiting stenosis. Echocardiogram is essentially stable. She has been monitored on telemetry for 24 hours with no arrhythmia identified. PT and OT have evaluated the patient and recommended home health care. She has also been evaluated by Speech Therapy. They recommend home health care. She has been transitioned from aspirin to Plavi x, given the fact that this incident occurred while on aspirin. She will follow up with Dr. Nascimento in the outpatient setting. 2. Hyperlipidemia. The patient was initiated on Lipitor during this hospital course and a prescript ion has been provided at the time of disposition. 3. Anxiety. This is stable. 4. Confusion. This has resolved. 5. Elevated hemoglobin A1c. The patient will follow with her primary care physician. Wants to decl ine initiation of treatment or medications at this time during this hospitalization. DISPOSITION: The patient will be discharged to return home to [facility] with home health care. Th ere are no pending studies. FOLLOWUP: With Dr. Nascimento in 1-4 weeks, as well as the patient's primary care physician. DISCHARGE MEDICATIONS: Please refer to EMR form. I have provided the patient a prescription for Celsa vix as well as Lipitor at the time of disposition. All other medications have remained the same, to the best of my knowledge. She will receive Home Health care, physical therapy, as well as occupational therapy at [facility]. I reviewed the patient's disposition with Dr. Nascimento as well as Case Management. I spent greater than 35 minutes in the care, coordination, and management of the patient's discharge. /[id number]/MODL
== END 2017-03-15 14:15 | disposition home health service (06) ==
LOC: EDBD 16:07 → F3N 20:41
PROVIDERS: ADMIT Internal Medicine; ATTEND Internal Medicine
DX: I63.9 Cerebral infarction, unspecified (principal); G45.9 Transient cerebral ischemic attack, unspecified; R29.700 NIHSS score 0; Z86.73 Personal history of transient ischemic attack (TIA), and cerebral infarction without residual deficits; F41.9 Anxiety disorder, unspecified; R41.0 Disorientation, unspecified; E78.5 Hyperlipidemia, unspecified; I10 Essential (primary) hypertension; E11.9 Type 2 diabetes mellitus without complications
CPT/HCPCS: 70450; 70496; 70498; 92507; 92523; 93005; 93306; 97110; 97116; 97162; 97166; 97535; 99285; G0378; G8978; G8979; G8987; G8988; G8989; G8999; G9158; G9168; G9169; G9170; G9186; Q9967

== ENCOUNTER 2017-03-21 08:35 | Emergency (ER) | payer OTHER, MEDICAID ==
--- NOTE | 2017-03-21 08:43 | EDPHY ---
H & P Time Seen by Provider: 03/21/17 08:42 - Medical/Surgical History Hx Asthma: No Hx Chronic Respiratory Disease: No Hx Diabetes: Yes Hx Cardiac Disease: Yes Hx Renal Disease: No Hx Cirrhosis: No Hx Alcoholism: No Hx HIV/AIDS: No Hx Splenectomy or Spleen Trauma: No Other PMH: Stroke 2012, DM, HTN, CHF, Gerd, carotid endarectomy - Social History Smoking Status: Never smoked Constitutional: Initial Vital Signs Temperature (C) 36.4 C 03/21/17 09:00 Heart Rate 62 03/21/17 09:00 Respiratory Rate 16 03/21/17 09:00 Blood Pressure 174/76 H 03/21/17 09:00 O2 Sat (%) 93 03/21/17 09:00 O2 Delivery Mode Room Air Allergies/Adverse Reactions: No Known Allergies Allergy (Unverified 03/13/17 16:45) Home Medications: Medication Instructions Recorded ALPRAZolam [Xanax 0.5 MG (*)] 0.5 mg PO BID PRN 03/13/17 Acetaminophen [Tylenol ES 500 mg 500 mg PO Q4H PRN 03/13/17 (*)] Calcium Carbonate [Tums 500MG (*)] 1,000 - 2,000 mg PO TIDMEAL PRN 03/13/17 FLUoxetine [Prozac 10 MG (*)] 10 mg PO DAILY 03/13/17 Furosemide [Lasix 20 MG (*)] 20 mg PO DAILY PRN 03/13/17 Levothyroxine [Synthroid 112 mcg 112 mcg PO DAILY06 03/13/17 (*)] Omeprazole [Prilosec 20 mg] 20 mg PO DAILY PRN 03/13/17 Atorvastatin Calcium [Lipitor 20 20 mg PO DAILY #30 tab 03/15/17 mg (*)] Clopidogrel Bisulfate [Plavix (*)] 75 mg PO DAILY #30 tab 03/15/17 Ciprofloxacin [Cipro] 500 mg PO BID #20 tab 03/21/17 metroNIDAZOLE [Flagyl 500 mg (*)] 500 mg PO TID #30 tab 03/21/17 Medical Decision Making - Diagnostics Imaging Results: Imaging Impressions Abdomen CT 03/21/17 08:51 Impression: 1. Mild sigmoid diverticulitis without abscess, bowel obstruction, or pneumoperitoneum. 2. Atherosclerotic abdominal aorta without aneurysm. 3. Small periumbilical abdominal wall hernia. 4. 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 Findings and recommendations discussed with Emergency Department physician, Jamie Joyner M.D., at 1013 hours on March 21, 2017. Final report concurs with initial preliminary interpretation. Imaging: Discussed imaging studies w/ product planner Radiologist, I viewed and interpreted images myself ED Course/Re-evaluation: CHIEF COMPLAINT: Chest pain, eye pain HISTORY OF PRESENT ILLNESS: This patient is a pleasant 86 year old female with history of GERD, hypertension , and diabetes mellitus arriving via EMS complaining of left-sided chest pain onset this morning. She was having her coffee and breakfast and developed midsternal and left-sided chest pain. She also endorses pain in her left eye. EMS administered tetracaine to her eye and 325mg PO ASA in transport. Currently , her pain is mostly resolved. Some pressure sensation remains. She does have history of anxiety but that chest pain was generally right-sided, and does not feel similar to her symptoms today. She denies nausea or vomiting. She denies shortness of breath, fever, urinary or bowel complaints, or other associated symptoms. REVIEW OF SYSTEMS: A 10 point review of systems was performed and is negative with the exception of the elements mentioned in the history of present illness. PHYSICAL EXAM: HR, BP, O2 Sat, RR. Temp noted General Appearance: Alert, well hydrated, appropriate, and non-toxic appearing. Head: Atraumatic without scalp tenderness or obvious injury Eyes: Pupils equal, round, reactive to light and accommodation, EOMI, no trauma , no injection. Ears: Clear bilaterally, no perforation, normal landmarks Nose: Atraumatic, no rhinorrhea, clear. Throat: There is no erythema or exudates, no lesions, normal tonsils, mucus membranes moist. Neck: Supple, nontender, no lymphadenopathy. Respiratory: Mild left chest wall tenderness. No retractions, no distress, no wheezes, and no accessory muscle use. Lungs are clear to auscultation bilaterally. Cardiovascular: Regular rate and rhythm, no murmurs, rubs, or gallops. Good capillary refill all extremities. Gastrointestinal: Left upper and lower quadrant tenderness. Abdomen is soft, non -distended, no masses, no rebound, no guarding, no peritoneal signs. Musculoskeletal: Normal active ROM of all extremities, atraumatic. Neurological: Alert, appropriate, and interactive. Nonfocal neuro exam. Skin: No rashes, good turgor, no nodules on palpation. Past medical history: History of stroke (2011), Diabetes Mellitus, Hypertension , Congestive heart failure, GERD, Past surgical history: Carotid endarterectomy Family history: Noncontributory Social history: Lives at [facility]. . Retired. DIFFERENTIAL DIAGNOSIS: The differential diagnosis for the patient's abdominal pain included but was not limited to diverticulitis, gastritis, urinary tract infection, cholecystitis , and appendicitis. MEDICAL DECISION MAKIN86 year old female presets with left-sided chest pain onset this morning shortly prior to arrival. Exam reveals mild left chest wall tenderness and left- sided abdominal tenderness. Plan for I-stat, CT abdomen/pelvis with contrast. Plan for labs including CBC, BMP, Troponin, UA, liver, and lipase. Plan for EKG and chest x-ray. 08:55 EKG shows sinus mechanism, rate 58, no evidence of ischemia. Laboratory studies largely unremarkable. Troponin negative. 10:[address] Jaime, radiologist. CT shows evidence of mild sigmoid diverticulitis. Plan to discharge home in good condition with prescriptions for Cipro and Flagyl. Plan to administer 500mg PO Cipro and 500mg PO Flagyl here in the emergency department. She will complete a ten day course at home. Reassessed patient. Follow up and return precautions discussed. She is comfortable with this plan. - Data Points Laboratory Results: Laboratory Results 03/21/17 09:00 03/21/17 09:00 03/21/17 03/21/17 03/21/17 09:00 09:00 08:56 WBC 9.44 10^3/uL 10^3/uL (3.80-9.50) RBC 4.77 10^6/uL 10^6/uL (4.18-5.33) Hgb 14.2 g/dL g/dL (12.6-16.3) POC Hgb 14.6 gm/dL gm/dL (12.6-16.3) Hct 40.1 % % (38.0-47.0) POC Hct 43 % % (38-47) MCV 84.1 fL fL (81.5-99.8) MCH 29.8 pg pg (27.9-34.1) MCHC 35.4 g/dL g/dL (32.4-36.7) RDW 13.4 % % (11.5-15.2) Plt Count 307 10^3/uL 10^3/uL (150-400) MPV 9.1 fL fL (8.7-11.7) Neut % (Auto) 60.9 % % (39.3-74.2) Lymph % (Auto) 29.7 % % (15.0-45.0) [place] % (Auto) 6.5 % % (4.5-13.0) Eos % (Auto) 1.9 % % (0.6-7.6) Baso % (Auto) 0.7 % % (0.3-1.7) Nucleat RBC Rel Count 0.0 % % (0.0-0.2) Absolute Neuts (auto) 5.75 10^3/uL 10^3/uL (1.70-6.50) Absolute Lymphs (auto) 2.80 10^3/uL 10^3/uL (1.00-3.00) Absolute Monos (auto) 0.61 10^3/uL 10^3/uL (0.30-0.80) Absolute Eos (auto) 0.18 10^3/uL 10^3/uL (0.03-0.40) Absolute Basos (auto) 0.07 10^3/uL 10^3/uL (0.02-0.10) Absolute Nucleated RBC 0.00 10^3/uL 10^3/uL (0-0.01) Immature Gran % 0.3 % % (0.0-1.1) Immature Gran # 0.03 10^3/uL 10^3/uL (0.00-0.10) POC Sodium 139 mEq/L mEq/L (134-144) Sodium 138 mEq/L mEq/L (134-144) POC Potassium 4.0 mEq/L mEq/L (3.3-5.0) Potassium 4.3 mEq/L mEq/L (3.5-5.2) POC Chloride 103 mEq/L mEq/L (97-110) Chloride 102 mEq/L mEq/L (97-110) Carbon Dioxide 19 mEq/l L mEq/l (22-31) Anion Gap 17 mEq/L H mEq/L (8-16) POC BUN 17 mg/dL mg/dL (7-23) BUN 16 mg/dL mg/dL (7-23) Creatinine 0.9 mg/dL mg/dL (0.6-1.0) POC Creatinine 1.0 mg/dL mg/dL (0.6-1.0) Estimated GFR 60 Glucose 118 mg/dL H mg/dL (70-100) POC Glucose 121 mg/dL H mg/dL (70-100) Calcium 9.6 mg/dL mg/dL (8.5-10.4) Total Bilirubin 0.5 mg/dL mg/dL (0.1-1.4) Conjugated Bilirubin 0.2 mg/dL mg/dL (0.0-0.5) Unconjugated Bilirubin 0.3 mg/dL mg/dL (0.0-1.1) AST 26 IU/L IU/L (14-46) ALT 10 IU/L IU/L (9-52) Alkaline Phosphatase 56 IU/L IU/L (38-126) Troponin I < 0.012 ng/mL ng/mL (0.000-0.034) Total Protein 6.9 g/dL g/dL (6.3-8.2) Albumin 4.2 g/dL g/dL (3.5-5.0) Lipase 132 IU/L IU/L (23-300) Medications Given: Discontinued Medications Sodium Chloride (Ns) 1,000 mls @ 0 mls/hr IV EDNOW ONE; Wide Open PRN Reason: Protocol Stop: 03/21/17 08:51 Last Admin: 03/21/17 09:13 Dose: 1,000 mls Point of Care Test Results: 03/21/17 08:56 POC Sodium 139 POC Potassium 4.0 POC Chloride 103 POC BUN 17 POC Creatinine 1.0 POC Glucose 121 H Departure - Departure Disposition: Home, Routine, Self-Care Clinical Impression: Sigmoid diverticulitis Condition: Good Instructions: Diverticulitis (ED), Diverticulitis Diet (ED) Additional Instructions: 1. Take Cipro and Flagyl as prescribed. It is important to finish your entire course of antibiotics even if you are feeling better. 2. Follow up with your primary care physician for further evaluation. 3. Return the the emergency department for increased pain, uncontrollable vomiting or diarrhea, fever, or other worsening of condition. Referrals: Phuc Juarez [Primary Care Provider] - As per Instructions Prescriptions: Ciprofloxacin [Cipro] 500 mg PO BID #20 tab metroNIDAZOLE [Flagyl 500 mg (*)] 500 mg PO TID #30 tab Report Scribed for: Jamie Joyner Report Scribed by: Negrita Hall Date of Report: 03/21/17 Time of Report: 10:28
[2017-03-21] MEDS ORDERED: NS 1,000 ML IV ONE (08:50)
--- NOTE | 2017-03-21 08:55 | CPEKG ---
Heart Rate: 58 RR Interval: 1034 P-R Interval: 152 QRSD Interval: 88 QT Interval: 428 QTC Interval: 421 P [place]: 73 QRS [place]: 7 T Wave [place]: 60 EKG Severity - NORMAL ECG - EKG Impression: SINUS RHYTHM Electronically Signed By: Jamie Joyner 21-Mar-2017 15:18:50
[2017-03-21 09:02] VITALS: BP 174/76; PULSE 62; RESP 16; TEMP 97.5; O2SAT 93
[2017-03-21 09:06] LABS: % IMMATURE GRANULYOCYTES 0.3 % (0.0-1.1); ABSOLUTE IMMATURE GRANULOCYTES 0.03 10^3/uL (0.00-0.10); ADD DIFF? NO; ADD MORPH? NO; ADD SCAN? NO; ATYPICAL LYMPHOCYTE FLAG 10 (0-99); FRAGMENT RBC FLAG 0 (0-99); HEMATOCRIT 40.1 % (38.0-47.0); HEMOGLOBIN 14.2 g/dL (12.6-16.3); LEFT SHIFT FLG 0 (0-99); LIPEMIA HEMOLYSIS FLAG 90 (0-99); MEAN CELL HEMOGLOBIN 29.8 pg (27.9-34.1); MEAN CELL HEMOGLOBIN CONCENTR. 35.4 g/dL (32.4-36.7); MEAN CELL VOLUME 84.1 fL (81.5-99.8); MEAN PLATELET VOLUME 9.1 fL (8.7-11.7); PLATELET CLUMPS FLAG 0 (0-99); PLATELET COUNT 307 10^3/uL (150-400); RED BLOOD CELL COUNT 4.77 10^6/uL (4.18-5.33); RED CELL DISTRIBUTION WIDTH 13.4 % (11.5-15.2)
[2017-03-21] MEDS ORDERED: IOPAMIDOL (ISOVUE-300) 100 ML BTL ONE (09:18)
[2017-03-21 09:33] LABS: ALANINE AMINOTRANSFERASE 10 IU/L (9-52); ALBUMIN 4.2 g/dL (3.5-5.0); ALKALINE PHOSPHATASE 56 IU/L (38-126); ANION GAP 17 mEq/L (8-16); ASPARTATE AMINOTRANSFERASE 26 IU/L (14-46); BILIRUBIN,TOTAL 0.5 mg/dL (0.1-1.4); BILIRUBIN-CONJUGATED 0.2 mg/dL (0.0-0.5); BILIRUBIN-UNCONJUGATED 0.3 mg/dL (0.0-1.1); CALCIUM 9.6 mg/dL (8.5-10.4); CARBON DIOXIDE 19 mEq/l (22-31); CHLORIDE 102 mEq/L (97-110); CREATININE 0.9 mg/dL (0.6-1.0); GLOMERULAR FILTRATION RATE 60; GLUCOSE 118 mg/dL (70-100); POTASSIUM 4.3 mEq/L (3.5-5.2); SODIUM 138 mEq/L (134-144); TOTAL PROTEIN 6.9 g/dL (6.3-8.2)
[2017-03-21 09:45] LABS: TROPONIN I < 0.012 ng/mL (0.000-0.034)
[2017-03-21] MEDS ORDERED: metroNIDAZOLE 500 MG TAB PO ONE (10:27)
[2017-03-21] MEDS ORDERED: CIPROFLOXACIN 500 MG TAB PO ONE (10:28)
== END 2017-03-21 11:21 | disposition home or self-care (01) ==
LOC: EDUNIT#
DX: K57.32 Diverticulitis of large intestine without perforation or abscess without bleeding (principal); E11.9 Type 2 diabetes mellitus without complications; I11.0 Hypertensive heart disease with heart failure; I50.9 Heart failure, unspecified
CPT/HCPCS: 74177; 93005; 99285; Q9967; 82947-QW

== ENCOUNTER 2018-02-21 13:11 | Observation (INO) | payer OTHER, MEDICAID ==
[2018-02-21] MEDS ORDERED: NS 500 ML IV ONE (13:12)
[2018-02-21] MEDS ORDERED: ASPIRIN 81 MG CHEWABLE TAB PO ONE (13:12)
--- NOTE | 2018-02-21 13:43 | EDPHY ---
H & P Time Seen by Provider: 02/21/18 13:12 HPI/ROS: HPI Chest pain. 87-year-old female by ambulance from [facility]. This patient reports that several hours prior to arrival she developed chest pain which she describes as sharp and aching in her mid substernal area. She states she is feeling better now but still has a sensation of heaviness on her chest. She denies shortness of breath currently. ROS: Constitutional: No fever, no chills. No weakness. Eyes: No discharge. No changes in vision. ENT: No sore throat. No nasal congestion or rhinorrhea. Respiratory: No cough. No shortness of breath. Cardiac: No chest pain, no palpitations. Gastrointestinal: No abdominal pain, no vomiting, no diarrhea. Genitourinary: No hematuria. No dysuria or increased frequency with urination. Musculoskeletal: No back pain. No neck pain. No myalgias or arthralgias. Skin: No rashes. Neurological: No headache. No focal weakness or altered sensation. Past medical history: Risk factors include atherosclerotic disease with history of CVA in 2011. She is currently on clopidogrel. She also has a history of diabetes, hypertension and CHF. Other medical history includes hypothyroidism, GERD and she has had a carotid endarterectomy. Social history: She is here by herself. No alcohol. Nonsmoker. Physical Exam: General Appearance: Alert, she is mildly anxious but not in distress. This patient is responding to questions appropriately and in full sentences. This patient appears well-hydrated and well-nourished. Eyes: Pupils equal and round no pallor or injection. No lid edema, erythema or injection. Respiratory: There are no retractions, lungs are clear to auscultation with good air movement bilaterally. Cardiovascular: Regular rate and rhythm. No murmur appreciated. Gastrointestinal: Abdomen is soft and nontender, no masses, bowel sounds normal. No focal tenderness at McBurney's point. No Andersen sign. Neurological: Motor sensory function is grossly intact. Cranial nerves are normal. Skin: Warm and dry, no rashes. Musculoskeletal: Neck is supple and nontender. Extremities are symmetrical. All joints range without pain or impingement. Psychiatric: No agitation. No depression. Database: EKG: EKG time is 1:31 p.m.; EKG shows a narrow complex normal sinus rhythm with a ventricular rate of 71. The NC, QRS, QT intervals are within normal limits. There are no ST-T wave changes indicative of ischemic or injury pattern. No evidence of right heart strain. Interpreted by me. Imaging: Chest x-ray AP portable; the cardiac mediastinal silhouette is unremarkable. No evidence of infiltrate or pneumothorax. No acute cardiopulmonary disease process noted. Interpreted by me. Procedures: Emergency department course: Triage vital signs were reviewed. An IV was placed. She was placed on a hazard waste handler. She was given 324 mg of chewed aspirin. EKG obtained and reviewed by myself. Heart score equals 5. 2:45 p.m., the patient was re-evaluated. Results of her diagnostic workup discussed with her. She states that she still has a low level of chest discomfort but is comfortable at this time. I discussed plans for admission overnight for further testing and cardiology consultation. She endorses. Hospitalist paged. 2:50 p.m., spoke with on-call hospitalist. Case discussed in detail. Patient accepted for admission to PCU observation. Patient admitted in stable condition. Differential Diagnosis: The differential diagnosis on this patient includes but is not limited to acute coronary syndrome, anxiety reaction, esophageal spasm. Pulmonary embolism, aortic dissection, myocarditis, pericarditis, pneumonia, pneumothorax unlikely. This represents a partial list of diagnoses considered. These considerations are based on history, physical exam, past history, reassessment and diagnostic testing. Smoking Status: Never smoked Constitutional: Initial Vital Signs Temperature (C) 36.7 C 02/21/18 13:56 Heart Rate 67 02/21/18 13:56 Respiratory Rate 18 02/21/18 13:56 Blood Pressure 153/72 H 02/21/18 13:56 O2 Sat (%) 94 02/21/18 13:56 O2 Delivery Mode Room Air Allergies/Adverse Reactions: No Known Allergies Allergy (Unverified 02/21/18 14:00) Home Medications: Medication Instructions Recorded ALPRAZolam [Xanax 0.5 MG (*)] 0.5 mg PO BID PRN 03/13/17 Acetaminophen [Tylenol ES 500 mg 500 mg PO TID 03/13/17 (*)] Calcium Carbonate [Tums 500MG (*)] 1,000 - 2,000 mg PO TIDMEAL PRN 03/13/17 FLUoxetine [Prozac 10 MG (*)] 10 mg PO DAILY 03/13/17 Levothyroxine [Synthroid 112 mcg 112 mcg PO DAILY06 03/13/17 (*)] Omeprazole [Prilosec 20 mg] 20 mg PO DAILY 03/13/17 Atorvastatin Calcium [Lipitor 20 20 mg PO DAILY #30 tab 03/15/17 mg (*)] Clopidogrel Bisulfate [Plavix (*)] 75 mg PO DAILY #30 tab 03/15/17 Acetaminophen [Tylenol ES 500 mg 500 mg PO BID PRN 02/21/18 (*)] Medical Decision Making - Diagnostics Imaging Results: Imaging Impressions Chest X-Ray 02/21/18 13:13 Impression: 1. Borderline cardiomegaly. 2. No active cardiopulmonary disease seen. - Data Points Laboratory Results: Laboratory Results 02/21/18 13:45 02/21/18 13:45 02/21/18 02/21/18 02/21/18 13:52 13:45 13:45 WBC RBC Hgb Hct MCV MCH MCHC RDW Plt Count MPV Neut % (Auto) Lymph % (Auto) [place] % (Auto) Eos % (Auto) Baso % (Auto) Nucleat RBC Rel Count Absolute Neuts (auto) Absolute Lymphs (auto) Absolute Monos (auto) Absolute Eos (auto) Absolute Basos (auto) Absolute Nucleated RBC Immature Gran % Immature Gran # PT 12.8 SEC SEC (12.0-15.0) INR 0.94 (0.83-1.16) APTT 27.0 SEC SEC (23.0-38.0) Sodium 137 mEq/L mEq/L (135-145) Potassium 4.6 mEq/L mEq/L (3.3-5.0) Chloride 103 mEq/L mEq/L (97-110) Carbon Dioxide 22 mEq/l mEq/l (22-31) Anion Gap 12 mEq/L mEq/L (6-14) BUN 19 mg/dL mg/dL (7-23) Creatinine 0.9 mg/dL mg/dL (0.6-1.0) Estimated GFR 59 Glucose 133 mg/dL H mg/dL (70-100) Calcium 9.3 mg/dL mg/dL (8.5-10.4) POC Troponin I 0.00 ng/mL ng/mL (0.00-0.08) 02/21/18 13:45 WBC 11.19 10^3/uL H 10^3/uL (3.80-9.50) RBC 4.80 10^6/uL 10^6/uL (4.18-5.33) Hgb 14.2 g/dL g/dL (12.6-16.3) Hct 40.8 % % (38.0-47.0) MCV 85.0 fL fL (81.5-99.8) MCH 29.6 pg pg (27.9-34.1) MCHC 34.8 g/dL g/dL (32.4-36.7) RDW 13.9 % % (11.5-15.2) Plt Count 292 10^3/uL 10^3/uL (150-400) MPV 9.3 fL fL (8.7-11.7) Neut % (Auto) 61.5 % % (39.3-74.2) Lymph % (Auto) 26.5 % % (15.0-45.0) [place] % (Auto) 8.8 % % (4.5-13.0) Eos % (Auto) 2.1 % % (0.6-7.6) Baso % (Auto) 0.7 % % (0.3-1.7) Nucleat RBC Rel Count 0.0 % % (0.0-0.2) Absolute Neuts (auto) 6.87 10^3/uL H 10^3/uL (1.70-6.50) Absolute Lymphs (auto) 2.97 10^3/uL 10^3/uL (1.00-3.00) Absolute Monos (auto) 0.99 10^3/uL H 10^3/uL (0.30-0.80) Absolute Eos (auto) 0.23 10^3/uL 10^3/uL (0.03-0.40) Absolute Basos (auto) 0.08 10^3/uL 10^3/uL (0.02-0.10) Absolute Nucleated RBC 0.00 10^3/uL 10^3/uL (0-0.01) Immature Gran % 0.4 % % (0.0-1.1) Immature Gran # 0.05 10^3/uL 10^3/uL (0.00-0.10) PT INR APTT Sodium Potassium Chloride Carbon Dioxide Anion Gap BUN Creatinine Estimated GFR Glucose Calcium POC Troponin I Medications Given: Discontinued Medications Aspirin (Aspirin) 324 mg PO EDNOW ONE Stop: 02/21/18 13:13 Last Admin: 02/21/18 14:03 Dose: Not Given Sodium Chloride (Ns) 500 mls @ 1,000 mls/hr IV EDNOW ONE PRN Reason: Protocol Stop: 02/21/18 13:41 Last Admin: 02/21/18 14:04 Dose: 500 mls Point of Care Test Results: Chemistry 02/21/18 13:52 POC Troponin I 0.00 ng/mL ng/mL (0.00-0.08) Departure - Departure Disposition: [facility] Inpatient Acute Clinical Impression: Chest pain
[2018-02-21 14:00] LABS: PLATELET COUNT 292 10^3/uL (150-400)
[2018-02-21 14:31] LABS: INR 0.94 (0.83-1.16); PROTIME(PATIENT) 12.8 SEC (12.0-15.0)
[2018-02-21] MEDS ORDERED: NITROGLYCERIN 0.4 MG BTL SL PRN (15:35)
[2018-02-21] MEDS ORDERED: ONDANSETRON 4 MG/2 ML VIAL IVP PRN (15:35)
--- NOTE | 2018-02-21 15:47 | ASMTCMCOM ---
CM Note CM Note Notes: Pt presented to the ED via EMS for chest pain. Pt lives in [facility] ([phone]). Pt admitted for cardiac monitoring/observation. Pt is concerned about her 20-year-old Yorkie Terrier, Laura, who was left on her bed in her room. This CM called [facility] and spoke w/RAMON Montenegrochemical operations specialist and she confirmed that they had spoken w/pt's son, Jorden ([phone]) earlier and that he usually comes and takes care of Laura while pt is in the hospital. This CM called Jorden and left a voicemail to notify him of pt's admission. If pt is still in the hospital after 12:30pm tomorrow, a re-assessment will need to be completed by [facility] in order for pt to return. Anticipate pt to return to [facility]. CM to follow. Date Signed: 02/21/2018 03:46 PM Electronically Signed By:Aditi Cobian RN
[2018-02-21] MEDS ORDERED: CALCIUM CARBONATE 500 MG CHEWABLE TAB PO PRN (17:34)
--- NOTE | 2018-02-21 17:37 | PDGENHP ---
History and Physical - Chief Complaint chest pain - History of Present Illness 87yo F with history of TIA/CVA, hypothyroidism, anxiety, ? dementia who presents from assisted living facility after having episode of chest pain. Occurred about an hour after finishing breakfast while sitting in chair listening to radio. Left side of chest, no radiation, associated with feeling hot and some dyspnea. Resolved spontaneously after a few minutes. Didn't have a pleuritic component. No presyncope/syncope, palpitations or recent leg swelling. Unable to tell if exertional or positional as she didn't move around. Never had pain like this before. She has had a dry cough and a runny nose for 3 days or so. Of note, patient is poor historian. In the ED, she had no acute ischemic changes on ECG and normal troponin level. Given her elevated HEART score, she is being admitted for further observation. Case discussed with ED physician Silverio Ledezma. History Information - Allergies/Home Medication List Allergies/Adverse Reactions: No Known Allergies Allergy (Unverified 02/21/18 14:00) Home Medications: ALPRAZolam [Xanax 0.5 MG (*)] 0.5 mg PO BID PRN 03/13/17 [Last Taken 02/21/18] Acetaminophen [Tylenol ES 500 mg (*)] 500 mg PO TID 03/13/17 [Last Taken 12:00] Calcium Carbonate [Tums 500MG (*)] 1,000 - 2,000 mg PO TIDMEAL PRN 03/13/17 [ Last Taken Unknown] FLUoxetine [Prozac 10 MG (*)] 10 mg PO DAILY 03/13/17 [Last Taken 02/21/18] Levothyroxine [Synthroid 112 mcg (*)] 112 mcg PO DAILY06 03/13/17 [Last Taken ] Omeprazole [Prilosec 20 mg] 20 mg PO DAILY 03/13/17 [Last Taken 02/21/18] Acetaminophen [Tylenol ES 500 mg (*)] 500 mg PO BID PRN 02/21/18 [Last Taken Unknown] I have personally reviewed and updated: family history, medical history, social history, surgical history - Past Medical History Additional medical history: R parietal CVA, TIA (03/2017), hypothyroidism, HLD - Surgical History Additional surgical history: CEA 5 years ago when she had CVA - Family History Positive for: non-pertinent - Social History Smoking Status: Never smoked Alcohol Use: None Drug Use: None Additional social history: Lives at [facility], has one son in area Review of Systems Review of Systems: ROS: 10pt was reviewed & negative except for what was stated in HPI & below Physical Exam Physical Exam: Temp Pulse Resp BP Pulse Ox 36.7 C 68 14 166/94 H 96 02/21/18 13:56 02/21/18 16:11 02/21/18 16:11 02/21/18 16:11 02/21/18 16:11 O2 (L/minute) 3 Constitutional: no apparent distress, appears nourished, not in pain Eyes: PERRL, anicteric sclera, EOMI Ears, Nose, Mouth, Throat: moist mucous membranes, hearing normal, ears appear normal, no oral mucosal ulcers Cardiovascular: regular rate and rhythym, no murmur, rub, or gallop, No JVD, No edema Respiratory: no respiratory distress, no rales or rhonchi, clear to auscultation Gastrointestinal: normoactive bowel sounds, soft, non-tender abdomen, no palpable masses Genitourinary: no bladder fullness, no bladder tenderness Skin: warm, normal color, no rashes or abrasions, no fluctuance, no induration, No mottled Musculoskeletal: full muscle strength, no muscle tenderness, normal joint ROM, no joint effusions Neurologic: other (alert, oriented x2-3, no focal deficits) Psychiatric: interacting appropriately, encephalopathic Lab Data & Imaging Review 02/21/18 13:45 02/21/18 13:45 WBC 11.19 10^3/uL (3.80-9.50) H 02/21/18 13:45 RBC 4.80 10^6/uL (4.18-5.33) 02/21/18 13:45 Hgb 14.2 g/dL (12.6-16.3) 02/21/18 13:45 Hct 40.8 % (38.0-47.0) 02/21/18 13:45 MCV 85.0 fL (81.5-99.8) 02/21/18 13:45 MCH 29.6 pg (27.9-34.1) 02/21/18 13:45 MCHC 34.8 g/dL (32.4-36.7) 02/21/18 13:45 RDW 13.9 % (11.5-15.2) 02/21/18 13:45 Plt Count 292 10^3/uL (150-400) 02/21/18 13:45 MPV 9.3 fL (8.7-11.7) 02/21/18 13:45 Neut % (Auto) 61.5 % (39.3-74.2) 02/21/18 13:45 Lymph % (Auto) 26.5 % (15.0-45.0) 02/21/18 13:45 Pondera % (Auto) 8.8 % (4.5-13.0) 02/21/18 13:45 Eos % (Auto) 2.1 % (0.6-7.6) 02/21/18 13:45 Baso % (Auto) 0.7 % (0.3-1.7) 02/21/18 13:45 Nucleat RBC Rel Count 0.0 % (0.0-0.2) 02/21/18 13:45 Absolute Neuts (auto) 6.87 10^3/uL (1.70-6.50) H 02/21/18 13:45 Absolute Lymphs (auto) 2.97 10^3/uL (1.00-3.00) 02/21/18 13:45 Absolute Monos (auto) 0.99 10^3/uL (0.30-0.80) H 02/21/18 13:45 Absolute Eos (auto) 0.23 10^3/uL (0.03-0.40) 02/21/18 13:45 Absolute Basos (auto) 0.08 10^3/uL (0.02-0.10) 02/21/18 13:45 Absolute Nucleated RBC 0.00 10^3/uL (0-0.01) 02/21/18 13:45 Immature Gran % 0.4 % (0.0-1.1) 02/21/18 13:45 Immature Gran # 0.05 10^3/uL (0.00-0.10) 02/21/18 13:45 PT 12.8 SEC (12.0-15.0) 02/21/18 13:45 INR 0.94 (0.83-1.16) 02/21/18 13:45 APTT 27.0 SEC (23.0-38.0) 02/21/18 13:45 Sodium 137 mEq/L (135-145) 02/21/18 13:45 Potassium 4.6 mEq/L (3.3-5.0) 02/21/18 13:45 Chloride 103 mEq/L (97-110) 02/21/18 13:45 Carbon Dioxide 22 mEq/l (22-31) 02/21/18 13:45 Anion Gap 12 mEq/L (6-14) 02/21/18 13:45 BUN 19 mg/dL (7-23) 02/21/18 13:45 Creatinine 0.9 mg/dL (0.6-1.0) 02/21/18 13:45 Estimated GFR 59 02/21/18 13:45 Glucose 133 mg/dL (70-100) H 02/21/18 13:45 Calcium 9.3 mg/dL (8.5-10.4) 02/21/18 13:45 POC Troponin I 0.00 ng/mL (0.00-0.08) 02/21/18 13:52 Visualized and Interpreted EKG results: Yes EKG additional interpertation: ECG: NSR, no acute ischemic, good R wave progression, no right heart strain, a PVC (interpreted by me) Assessment & Plan Assessment: 87yo F with history of TIA/CVA, hypothyroidism, anxiety, ? dementia who presents from assisted living facility after having episode of chest pain. Plan: #Chest pain: She is currently pain free. Intermediate risk of coronary disease. Initial ecg and troponin negative for acute ischemia. Low suspicion of PE. This could be anxiety related but will rule out ACS. Will monitor on telemetry and follow serial trop/ecg per protocol. Discussed stress testing with patient - she wants to think about this as she would not want an angiogram if abnormal. I explained that the stress test may help us prognostically and help get her on the most appropriate medications (ie. add on long-acting anti-anginal therapy). She is already on plavix and a statin. #Encephalopathy: I suspect this is chronic and likely related to vascular disease. Will hold her xanax. Obtain more info from [facility] in AM. #H/o CVA: In right parietal area. She had a CEA after this. Will continue her home plavix, statin. PT/OT ordered as well. #Leukocytosis: Mild. She reports a mild cough but no other localizing infectious sxs. Monitor. #Hypothyroidism: Continue home LT4. #Anxiety: Continue prozac, holding benzos as above. Diet: cardiac VTE ppx: LMWH Code: DNR per discussion with patient Dispo: Admit under observation.
[2018-02-21] MEDS: ACETAMINOPHEN 500 MG TAB PO SCH (21:31)
[2018-02-21] MEDS ORDERED: BENZONATATE 100 MG CAP PO PRN (22:57)
[2018-02-21] MEDS ORDERED: CEPACOL LOZENGE PO PRN (22:57)
[2018-02-22] MEDS: ACETAMINOPHEN 325 MG TAB PO PRN ×3 (01:23→12:26)
[2018-02-22] MEDS ORDERED: LEVOTHYROXINE 112 MCG TAB PO SCH (06:00)
[2018-02-22 08:04] VITALS: BP 162/77
[2018-02-22] MEDS ORDERED: ASPIRIN 325 MG TAB PO SCH (09:00)
[2018-02-22] MEDS ORDERED: ATORVASTATIN CALCIUM 20 MG TAB PO SCH (09:00)
[2018-02-22] MEDS ORDERED: CLOPIDOGREL BISULFATE 75 MG TAB PO SCH (09:00)
[2018-02-22] MEDS ORDERED: PANTOPRAZOLE SODIUM 40 MG TAB PO SCH (09:00)
[2018-02-22] MEDS ORDERED: FLUoxetine 10 MG CAP PO SCH (09:00)
--- NOTE | 2018-02-22 09:20 | CPEKG ---
Test Reason : OPEN Blood Pressure : / mmHG Vent. Rate : 061 BPM Atrial Rate : 061 BPM P-R Int : 153 ms QRS Dur : 089 ms QT Int : 434 ms P-R-T Axes : 073 032 062 degrees QTc Int : 438 ms Sinus rhythm Ventricular premature complex Low voltage, extremity leads Confirmed by Aron Carrasquillo ([id number]) on 02/22/2018 9:20:00 AM Referred By: Confirmed By:Aron Carrasquillo
[2018-02-22] MEDS: ACETAMINOPHEN 500 MG TAB PO SCH (09:32)
[2018-02-22] MEDS ORDERED: ALPRAZolam 0.5 MG TAB PO PRN (09:56)
[2018-02-22] MEDS ORDERED: PNEUMOC 13-VAL CONJ-DIP CRM/PF 0.5 ML SYR IM ONE (10:37)
--- NOTE | 2018-02-22 10:41 | PDIAF ---
- Diagnosis Diagnosis: chest pain Code Status: Do Not Resuscitate - Medication Management Discharge Medications: Medications to Continue on Transfer ALPRAZolam [Xanax 0.5 MG (*)] 0.5 mg PO BID PRN 03/13/17 [Last Taken 02/21/18] Acetaminophen [Tylenol ES 500 mg (*)] 500 mg PO TID 03/13/17 [Last Taken 12:00] Calcium Carbonate [Tums 500MG (*)] 1,000 - 2,000 mg PO TIDMEAL PRN 03/13/17 [ Last Taken Unknown] FLUoxetine [Prozac 10 MG (*)] 10 mg PO DAILY 03/13/17 [Last Taken 02/21/18] Levothyroxine [Synthroid 112 mcg (*)] 112 mcg PO DAILY06 03/13/17 [Last Taken ] Omeprazole [Prilosec 20 mg] 20 mg PO DAILY 03/13/17 [Last Taken 02/21/18] Atorvastatin Calcium [Lipitor 20 mg (*)] 20 mg PO DAILY #30 tab 03/15/17 [Last Taken 02/21/18] Clopidogrel Bisulfate [Plavix (*)] 75 mg PO DAILY #30 tab 03/15/17 [Last Taken 02/21/18] Acetaminophen [Tylenol ES 500 mg (*)] 500 mg PO BID PRN 02/21/18 [Last Taken Unknown] Discharge Medications: Refer to the Discharge Home Medication list for PRN reason. - Orders Services needed: Home Care, Physical Therapy, Occupational Therapy Home Care Face to Face: I certify that this patient was under my care and that I had the required [id number] encounter meeting the encounter requirements on the discharge day. My findings support the fact that the patient is homebound as defined in Home Care Face to Face Continued: CMS Chapter 7 Medicare Benefits Manual 30.1.1 , The condition of the patient is such that there exists a normal inability to leave home and consequently, leaving home would require a considerable and taxing effort. Diet Recommendation: no restrictions on diet Additional Instructions: If you change your mind regarding further work-up of your chest pain, discuss with your PCP options including stress testing or GI work-up - Follow Up Care Current Providers and Referrals: Phuc Juarez [Primary Care Provider] -
--- NOTE | 2018-02-22 10:47 | ASMTDCNOTE ---
Case Management Discharge Discharge Order Complete? Answers: Yes Patient to Obtain Answers: Other Notes: [facility] Medications Transportation Arranged Answers: Family/Friends Transport will Pick (Date 02/22/2018 02:00 PM & Time) EMTALA Complete Answers: No Case Management Transport Answers: No Form Complete Faxed Final Orders Answers: Yes Agency/Facility Transfer Answers: Yes Report Printed & Faxed to Receiving Agency Family Notified Answers: Yes Discharge Comments Notes: CM spoke to pts son Jorden. Pt is being discharged today. PT is recommending HC. OT is pending. Jorden would like pt to have HC services. CM met w/ pt for dispo planning. Pt is agreeable to HC services. CM confirmed pts phone number and address. Referral made to [facility]. [facility] is able to accept. CM provided RAMON Almazan w/ phone number to give report. CM sent d/c info to [facility]. Pt does not have any new meds added. Jorden will be picking pt up. CM available for changes. Plan: [facility]; PT, OT Date Signed: 02/22/2018 10:46 AM Electronically Signed By:TAMMIE Vazquez
--- NOTE | 2018-02-22 10:52 | ASDISCHSUM ---
Discharge Information Plan Status:Home with Home Health Medically Cleared to Leave:02/22/2018 Discharge Date:02/22/2018 CM D/C Disposition: ADT D/C Disposition:Home, Routine, Self-Care Projected Discharge Date:02/22/2018 11:00 AM Transportation at D/C: Discharge Delay Reason: Follow-Up Date:02/22/2018 11:00 AM Discharge Slot: Final Diagnosis: Placement Information Referral Type:*Home Health Care Services Referral ID:[id number] Provider Name:[facility] Address 1:[address] [place] [address] Address 2: City:[place] Selection Factors: State:[place] Patient Contact Information Contact Name:LATIA Relationship:Son Address:[address] Work Phone: [facility] Phone: State/Zip Code:[place] [address] Email: Financial Information Financial Class:Medicare Primary Plan Desc:MEDICARE OUTPATIENT Primary Plan Number:[id number] Secondary Plan Desc:MED[place] Secondary Plan Number:[id number] Assessment Information [employer] Progress Note CM Note CM Note Notes: Pt presented to the ED via EMS for chest pain. Pt lives in [facility] ([phone]). Pt admitted for cardiac monitoring/observation. Pt is concerned about her 20-year-old Jeniffer Terrier, Laura, who was left on her bed in her room. This CM called [facility] and spoke w/Moni acoustical tile carpenters supervisor and she confirmed that they had spoken w/pt's son, Jorden ([phone]) earlier and that he usually comes and takes care of Laura while pt is in the hospital. This CM called Jorden and left a voicemail to notify him of pt's admission. If pt is still in the hospital after 12:30pm tomorrow, a re-assessment will need to be completed by [facility] in order for pt to return. Anticipate pt to return to . CM to follow. Date Signed: 02/21/2018 03:46 PM Electronically Signed By:Aditi Cobian RN LACE LACE Length of stay for Answers: 1 day current admission Acuity / Level of Answers: No Care: Did the patient have an inpatient admission? Comorbidities - select Answers: Cerebrovascular disease all that apply (CVA, TIA, aneurysms, vasc ular dementia) Congestive heart failure Diabetes (uncontrolled or controlled) Other Notes: HTN, GERD, hypothyroidi sm, carotid endartectomy # of Emergency department Answers: 1-2 visits in the last 6 months Score: 7 Date Signed: 02/22/2018 10:50 AM Electronically Signed By:TAMMIE Vazquez Case Management Discharge Plan Note Case Management Discharge Discharge Order Complete? Answers: Yes Patient to Obtain Answers: Other Notes: [facility] Transportation Arranged Answers: Family/Friends Transport will Pick (Date 02/22/2018 02:00 PM & Time) CHRISSIE Complete Answers: No Case Management Transport Answers: No Form Complete Faxed Final Orders Answers: Yes Agency/Facility Transfer Answers: Yes Report Printed & Faxed to Receiving Agency Family Notified Answers: Yes Discharge Comments Notes: CM spoke to pts son Jorden. Pt is being discharged today. PT is recommending HC. OT is pending. Jorden would like pt to have HC services. CM met w/ pt for dispo planning. Pt is agreeable to HC services. CM confirmed pts phone number and address. Referral made to [facility]. [facility] is able to accept. CM provided RAMON Almazan w/ phone number to give report. CM sent d/c info to [facility]. Pt does not have any new meds added. Jorden will be picking pt up. CM available for changes. Plan: [facility]; PT, OT Date Signed: 02/22/2018 10:46 AM Electronically Signed By:TAMMIE Vazquez Intervention Information
--- NOTE | 2018-02-22 17:15 | GDS ---
DISCHARGE DIAGNOSES: 1. Chest pain with negative evaluation suspected gastrointestinal. 2. Gastroesophageal reflux disease. 3. History of stroke status post carotid endarterectomy. 4. Anxiety on chronic benzodiazepines. HISTORY: This is an 87-year-old female who presented with chest pain. She had a transient episode o f substernal burning shortly after eating. She was admitted to the hospital for observation and seria l troponins and EKGs were negative. She was offered stress test but she declined, saying she is 87 y ears old. She does not want any aggressive treatment and she would not want a cardiac catheterizatio n if it were positive. I also offered her empiric proton pump inhibitor to treat possible GERD given the fact her pain repeatedly occurs after eating and she takes quite a bit of Tums. However she dec lined this as well, thinking that she is doing fine with her current management. She was discharged back to her previous living situation. DISCHARGE MEDICATIONS: Please see computer record for full detailed list. There are no new medicati ons given at time of hospital discharge. ADDITIONAL DISCHARGE INSTRUCTIONS: If you change your mind regarding further workup of chest pain, guerline beckmanuss with the primary care doctor options including possible stress testing and further GI evaluati on. Patient was seen and examined by me on the day of discharge. /[id number]/MODL
--- NOTE | 2018-02-25 10:37 | CPEKG ---
Test Reason : OPEN Blood Pressure : / mmHG Vent. Rate : 071 BPM Atrial Rate : 070 BPM P-R Int : 143 ms QRS Dur : 096 ms QT Int : 392 ms P-R-T Axes : 069 -08 068 degrees QTc Int : 426 ms Sinus rhythm Confirmed by Aron Carrasquillo ([id number]) on 02/25/2018 10:36:25 AM Referred By: Confirmed By:Aron Carrasquillo
== END 2018-02-22 14:40 | disposition home health service (06) ==
LOC: EDUNIT# → F2W 15:40
PROVIDERS: ADMIT Internal Medicine; ATTEND Internal Medicine
DX: R07.89 Other chest pain (principal); K21.9 Gastro-esophageal reflux disease without esophagitis; E03.9 Hypothyroidism, unspecified; F41.9 Anxiety disorder, unspecified; F19.20 Other psychoactive substance dependence, uncomplicated; Z23 Encounter for immunization; Z66 Do not resuscitate; Z86.73 Personal history of transient ischemic attack (TIA), and cerebral infarction without residual deficits
CPT/HCPCS: 71045; 90670; 90686; 93005; 97116; 97161; 97165; G0008; G0009; G0378; G8978; G8979; G8987; G8988; 84484-PO

== ENCOUNTER 2018-08-28 16:12 | Emergency (ER) | payer OTHER, MEDICAID | END 2018-08-28 18:14 | disposition home or self-care (01) | DX: R07.9 Chest pain, unspecified (principal); I11.0 Hypertensive heart disease with heart failure; I50.9 Heart failure, unspecified; E11.9 Type 2 diabetes mellitus without complications; Z86.73 Personal history of transient ischemic attack (TIA), and cerebral infarction without residual deficits ==